=== PATIENT | female | born 1940 | race Two or more races ===

== ENCOUNTER 2022-05-25 02:09 | Inpatient (IN) | payer OTHER ==
[~2022-05-25] VITALS: Ht 162.6 cm; Wt 66.5 kg
[2022-05-25] VITALS (12 sets, daily range): BP systolic 110–131; BP diastolic 50–82
[2022-05-25 03:28] LABS: Basophils # (auto) 0 10 ^3/uL (0-0.2); Basophils % (auto) 0.3 % (0.0-2.0); Eosinophils # (auto) 0 10 ^3/uL (0-0.8); Eosinophils % (auto) 0.3 % (0.0-7.0); Hematocrit 35.4 % (36.0-46.0); Hemoglobin 11.9 g/dL (12.2-16.2); Lymphocytes # (auto) 1.7 10 ^3/uL (0.4-5.4); Lymphocytes % (auto) 13.2 % (10.0-50.0); Mean Corpuscular Hemoglobin 33.3 pg (28.0-32.0); Mean Corpuscular Hgb Conc. 33.7 g/dL (32.0-36.0); Mean Corpuscular Volume 98.6 fL (80.0-100.0); Monocytes # (auto) 0.6 10 ^3/uL (0-1.3); Monocytes % (auto) 4.2 % (0.0-12.0); Neutrophils # (auto) 10.7 10 ^3/uL (1.6-8.6); Red Blood Cells 3.59 10^6/uL (4.0-5.20); Red Cell Distribution Width 13.8 % (11.8-14.3); White Blood Cell 13.1 10^3/uL (4.4-10.8)
[2022-05-25 03:47] LABS: Albumin 4.1 g/dL (3.4-5.0); Calcium 9.2 mg/dL (8.5-10.1); Potassium 4.4 mmol/L (3.5-5.1)
[2022-05-25 03:52] LABS: BUN/Creatinine Ratio 16.3; Bilirubin, Total 0.5 mg/dL (0.2-1.0); Total Protein 7.5 g/dL (6.4-8.2)
[2022-05-25 04:21] LABS: INR 1.08 (0.9-1.15); Partial Thromboplastin Time 28.5 sec (24.6-33.4)
[2022-05-25] MEDS ORDERED: ENOXAPARIN SOD 100 MG/1 ML SYRINGE SC ONE (04:30)
[2022-05-25] MEDS ORDERED: ASPirin 81 mg TAB PO ONE (04:30)
[2022-05-25] MEDS ORDERED: HEPARIN SODIUM (PORCINE) 5000 UNITS/ML 1ML VIAL IV ONE (05:00)
[2022-05-25] MEDS ORDERED: ATORVASTATIN 20 MG TAB PO ONE (06:45)
[2022-05-25] MEDS ORDERED: HEPARIN DRIP/D5W 100UNITS/ML 250 ML IV SCH (06:45)
[2022-05-25] MEDS ORDERED: CLOPIDOGREL BISULFATE 75 MG TAB PO ONE (06:45)
[2022-05-25 08:24] LABS: Urine Bacteria FEW /hpf (None Seen); Urine Blood TRACE /uL (Negative); Urine Specific Gravity 1.013 (1.001-1.035); Urine WBC 42 /hpf (0 - 5); Urine WBC Clumps PRESENT /hpf (None Seen)
[2022-05-25] MEDS ORDERED: METO1TAB9 PO (09:20)
[2022-05-25] MEDS ORDERED: LOSA-69 PO (09:20)
[2022-05-25] MEDS ORDERED: CARB25TA77 PO (09:20)
[2022-05-25] MEDS ORDERED: LORA0.5T20 PO (09:20)
[2022-05-25] MEDS ORDERED: LATA0.0019 EACHEYE (09:20)
[2022-05-25] MEDS ORDERED: PIOG1TAB36 PO (09:20)
[2022-05-25] MEDS ORDERED: GLIP10TA9 PO (09:20)
[2022-05-25] MEDS ORDERED: SIMV-8 (09:20)
[2022-05-25] MEDS ORDERED: SITA100T7 PO (09:20)
[2022-05-25] MEDS ORDERED: LIDOCAINE 2%HCL (LOCAL ANESTH.) INJ 20ML MDV ONE (09:21)
[2022-05-25] MEDS ORDERED: IODIXANOL 320MG/ML 100ML BTL IV ONE (09:21)
[2022-05-25] MEDS ORDERED: HEPARIN SODIUM (PORCINE) 5000 UNITS/ML 1ML VIAL ONE (09:28)
[2022-05-25] MEDS ORDERED: ANGIOMAX 250 MG VIAL IV ONE (09:28)
[2022-05-25] MEDS ORDERED: VERAPAMIL 2.5MG/ML INJ 2ML VIAL IV ONE ×2 (09:29→09:58)
[2022-05-25] MEDS ORDERED: fentaNYL CITRATE 100 MCG/2 ML VL ONE (09:29)
[2022-05-25] MEDS ORDERED: MIDAZOLAM HCL 2MG/2ML 2ml VIAL (1mg/ml) ONE (09:29)
[2022-05-25] MEDS ORDERED: SODIUM CHL 0.9% 0 ML ONE (09:29)
[2022-05-25] MEDS ORDERED: ADENOSINE 6 MG/2 ML INJ IV ONE ×2 (10:05→10:07)
[2022-05-25] MEDS: METOPROLOL TARTRATE 50 MG TAB PO SCH ×2 (11:35→21:14)
[2022-05-25] MEDS ORDERED: ONDANSETRON HCL 4 MG/2 ML VIAL ONE (12:57)
[2022-05-25] MEDS: ONDANSETRON HCL 4 MG/2 ML VIAL IV PRN (13:00)
[2022-05-25] MEDS: SODIUM CHLOR 0.9% PF (SALINE LOCK) 10ML VIAL/SYR IV SCH ×2 (14:00→21:14)
[2022-05-26] VITALS (14 sets, daily range): BP systolic 101–137; BP diastolic 41–82
[2022-05-26] MEDS: SODIUM CHLOR 0.9% PF (SALINE LOCK) 10ML VIAL/SYR IV SCH ×3 (05:54→21:28)
[2022-05-26] MEDS ORDERED: ADENOSINE 6 MG/2 ML INJ IV ONE ×2 (09:15)
[2022-05-26] MEDS ORDERED: cefTRIAXone 1GM/50ML D5W 50 ML IV ONE (09:15)
[2022-05-26 09:32] LABS: Basophils # (auto) 0.1 10 ^3/uL (0-0.2); Basophils % (auto) 0.6 % (0.0-2.0); Eosinophils # (auto) 0 10 ^3/uL (0-0.8); Eosinophils % (auto) 0.4 % (0.0-7.0); Hemoglobin 12.2 g/dL (12.2-16.2); Lymphocytes # (auto) 2.4 10 ^3/uL (0.4-5.4); Lymphocytes % (auto) 23.2 % (10.0-50.0); Mean Corpuscular Hgb Conc. 33.8 g/dL (32.0-36.0); Mean Corpuscular Volume 97.7 fL (80.0-100.0); Monocytes # (auto) 0.8 10 ^3/uL (0-1.3); Monocytes % (auto) 7.3 % (0.0-12.0); Neutrophils # (auto) 7.2 10 ^3/uL (1.6-8.6); Neutrophils % (auto) 68.5 % (37.0-80.0); Red Blood Cells 3.68 10^6/uL (4.0-5.20); Red Cell Distribution Width 13.8 % (11.8-14.3); White Blood Cell 10.5 10^3/uL (4.4-10.8)
[2022-05-26 09:53] LABS: Potassium 4.4 mmol/L (3.5-5.1)
[2022-05-26 09:59] LABS: BUN/Creatinine Ratio 13.6; Calcium 8.9 mg/dL (8.5-10.1); Magnesium 1.9 mg/dL (1.6-2.6)
[2022-05-26] MEDS ORDERED: dilTIAZem HCL 180MG ER CAP PO SCH (10:00)
[2022-05-26] MEDS ORDERED: AMIODARONE HCL 150 MG in D5W 5% 100 ML IV ONE (10:15)
[2022-05-26] MEDS ORDERED: AMIODARONE HCL 200 MG TAB PO ONE (11:15)
[2022-05-26] MEDS ORDERED: ASPirin 81 mg TAB PO ONE (15:15)
[2022-05-26] MEDS ORDERED: ENOXAPARIN SOD 30 MG/0.3 ML SYRINGE SC ONE (15:15)
[2022-05-26] MEDS: SODIUM CHLORIDE 0.9% 1,000 ML IV SCH ×2 (15:18→21:28)
[2022-05-26] MEDS: ACETAMINOPHEN 325 MG TAB PO PRN (16:15)
[2022-05-26] MEDS: DOCUSATE SOD 100 MG CAP PO PRN (16:15)
[2022-05-26] MEDS ORDERED: ADENOSINE 6 MG/2 ML INJ IV PRN (21:00)
[2022-05-26] MEDS: AMIODARONE HCL 200 MG TAB PO SCH (21:28)
[2022-05-27] VITALS (36 sets, daily range): BP systolic 81–135; BP diastolic 40–79
[2022-05-27] MEDS ORDERED: dilTIAZem 25 MG/5 ML VIAL IV ONE (03:45)
[2022-05-27 05:04] LABS: Basophils # (auto) 0.1 10 ^3/uL (0-0.2); Basophils % (auto) 0.5 % (0.0-2.0); Eosinophils # (auto) 0.1 10 ^3/uL (0-0.8); Eosinophils % (auto) 0.5 % (0.0-7.0); Hematocrit 32.8 % (36.0-46.0); Hemoglobin 11.3 g/dL (12.2-16.2); Lymphocytes # (auto) 2.1 10 ^3/uL (0.4-5.4); Lymphocytes % (auto) 18.4 % (10.0-50.0); Mean Corpuscular Hemoglobin 33.6 pg (28.0-32.0); Mean Corpuscular Hgb Conc. 34.5 g/dL (32.0-36.0); Mean Corpuscular Volume 97.4 fL (80.0-100.0); Monocytes % (auto) 8.6 % (0.0-12.0); Red Blood Cells 3.36 10^6/uL (4.0-5.20); Red Cell Distribution Width 13.7 % (11.8-14.3); White Blood Cell 11.1 10^3/uL (4.4-10.8)
[2022-05-27 05:16] LABS: Albumin 3.2 g/dL (3.4-5.0); BUN/Creatinine Ratio 9.6; Calcium 8.1 mg/dL (8.5-10.1); Potassium 3.8 mmol/L (3.5-5.1)
[2022-05-27 05:19] LABS: Bilirubin, Total 0.8 mg/dL (0.2-1.0); Total Protein 6.2 g/dL (6.4-8.2)
[2022-05-27] MEDS: SODIUM CHLOR 0.9% PF (SALINE LOCK) 10ML VIAL/SYR IV SCH ×4 (06:15→21:36)
[2022-05-27] MEDS ORDERED: dilTIAZem 25 MG/5 ML VIAL IV PRN (07:45)
[2022-05-27] MEDS ORDERED: POTASSIUM EFFERVESENT TAB 25 MEQ PO ONE (08:30)
[2022-05-27] MEDS ORDERED: MAGNESIUM SULFATE 1GM/100ML 100 ML IV ONE (08:30)
[2022-05-27] MEDS ORDERED: dilTIAZem HCL 180MG ER CAP PO SCH (10:00)
[2022-05-27] MEDS ORDERED: dilTIAZem 120MG ER CAP PO SCH (10:15)
[2022-05-27] MEDS: ENOXAPARIN SOD 30 MG/0.3 ML SYRINGE SC SCH (10:19)
[2022-05-27] MEDS: ASPirin 81 mg TAB PO SCH (10:19)
[2022-05-27] MEDS: cefTRIAXone 1GM/50ML D5W 50 ML IV SCH (10:20)
[2022-05-27] MEDS: AMIODARONE HCL 200 MG TAB PO SCH (10:20)
[2022-05-27] MEDS ORDERED: AMIODARONE 450mg/250ml AE 250 ML IV ONE (12:11)
[2022-05-27] MEDS ORDERED: SOTALOL HCL 80 MG TAB PO ONE (12:15)
[2022-05-27] MEDS: AMIODARONE 450mg/250ml AE 250 ML IV SCH ×2 (12:29→20:45)
[2022-05-27] MEDS ORDERED: FLECAINIDE ACETATE 50 MG TAB PO SCH (14:00)
[2022-05-27] MEDS ORDERED: LIDOCAINE 1% (LOCAL ANESTH.) PF 5ml SDV ID ONE (15:30)
[2022-05-27] MEDS: ONDANSETRON HCL 4 MG/2 ML VIAL IV PRN (16:27)
[2022-05-27] MEDS: DOCUSATE SOD 100 MG CAP PO PRN (17:31)
[2022-05-27] MEDS: ACETAMINOPHEN 325 MG TAB PO PRN (17:41)
[2022-05-27] MEDS: SODIUM CHLORIDE 0.9% 1,000 ML IV SCH (19:22)
[2022-05-27] MEDS: dilTIAZem 120MG ER CAP PO SCH (21:36)
[2022-05-27] MEDS ORDERED: SOTALOL HCL 80 MG TAB PO SCH (22:00)
[2022-05-28] VITALS (43 sets, daily range): BP systolic 106–136; BP diastolic 40–81
[2022-05-28] MEDS: SODIUM CHLORIDE 0.9% 1,000 ML IV SCH ×3 (01:15→20:26)
[2022-05-28] MEDS: AMIODARONE 450mg/250ml AE 250 ML IV SCH ×4 (03:07→20:26)
[2022-05-28] MEDS: ACETAMINOPHEN 325 MG TAB PO PRN (03:26)
[2022-05-28 04:59] LABS: Basophils # (auto) 0 10 ^3/uL (0-0.2); Basophils % (auto) 0.4 % (0.0-2.0); Eosinophils # (auto) 0 10 ^3/uL (0-0.8); Eosinophils % (auto) 0.5 % (0.0-7.0); Hematocrit 32.5 % (36.0-46.0); Hemoglobin 10.8 g/dL (12.2-16.2); Lymphocytes # (auto) 1.6 10 ^3/uL (0.4-5.4); Lymphocytes % (auto) 15.3 % (10.0-50.0); Mean Corpuscular Hemoglobin 33.2 pg (28.0-32.0); Mean Corpuscular Hgb Conc. 33.2 g/dL (32.0-36.0); Monocytes # (auto) 0.9 10 ^3/uL (0-1.3); Monocytes % (auto) 9.2 % (0.0-12.0); Neutrophils # (auto) 7.6 10 ^3/uL (1.6-8.6); Neutrophils % (auto) 74.6 % (37.0-80.0); Red Blood Cells 3.25 10^6/uL (4.0-5.20); Red Cell Distribution Width 13.7 % (11.8-14.3); White Blood Cell 10.2 10^3/uL (4.4-10.8)
[2022-05-28 05:17] LABS: Albumin 2.8 g/dL (3.4-5.0); BUN/Creatinine Ratio 9.4; Potassium 4.4 mmol/L (3.5-5.1)
[2022-05-28 05:28] LABS: Bilirubin, Total 0.8 mg/dL (0.2-1.0)
[2022-05-28] MEDS: SODIUM CHLOR 0.9% PF (SALINE LOCK) 10ML VIAL/SYR IV SCH ×5 (05:51→21:44)
[2022-05-28] MEDS: ASPirin 81 mg TAB PO SCH (08:57)
[2022-05-28] MEDS: cefTRIAXone 1GM/50ML D5W 50 ML IV SCH (08:57)
[2022-05-28] MEDS: dilTIAZem 120MG ER CAP PO SCH ×2 (08:58→21:43)
[2022-05-28] MEDS ORDERED: DEXTROSE (50%) 50ML SYRG IV PRN (10:45)
[2022-05-28] MEDS: InsuLIN REG 1unit/0.01ml Soln (100units/ml) SC SCH ×3 (11:30→21:49)
[2022-05-28] MEDS: ACCU-CHEK COMFORT CURVE STRIP VI SCH ×3 (12:06→21:44)
[2022-05-28] MEDS: DOCUSATE SOD 100 MG CAP PO PRN (12:07)
[2022-05-28] MEDS: ENOXAPARIN SOD 30 MG/0.3 ML SYRINGE SC SCH (12:07)
[2022-05-28] MEDS: CARBIDOPA W LEVODOPA 25/100mg TABLET PO SCH ×3 (12:07→21:43)
[2022-05-28] MEDS ORDERED: THROAT LOZENGES(CEPASTAT) MT PRN (12:45)
[2022-05-28] MEDS: LORazepam 0.5 MG TAB PO PRN (21:44)
[2022-05-29] VITALS (53 sets, daily range): BP systolic 89–148; BP diastolic 29–67
[2022-05-29 05:03] LABS: Basophils # (auto) 0 10 ^3/uL (0-0.2); Basophils % (auto) 0.4 % (0.0-2.0); Eosinophils # (auto) 0.1 10 ^3/uL (0-0.8); Hematocrit 31.6 % (36.0-46.0); Hemoglobin 10.9 g/dL (12.2-16.2); Lymphocytes # (auto) 1.9 10 ^3/uL (0.4-5.4); Lymphocytes % (auto) 18.4 % (10.0-50.0); Mean Corpuscular Hemoglobin 34.1 pg (28.0-32.0); Mean Corpuscular Hgb Conc. 34.6 g/dL (32.0-36.0); Mean Corpuscular Volume 98.6 fL (80.0-100.0); Monocytes # (auto) 0.8 10 ^3/uL (0-1.3); Monocytes % (auto) 7.9 % (0.0-12.0); Neutrophils # (auto) 7.5 10 ^3/uL (1.6-8.6); Neutrophils % (auto) 72.3 % (37.0-80.0); Red Blood Cells 3.21 10^6/uL (4.0-5.20); White Blood Cell 10.4 10^3/uL (4.4-10.8)
[2022-05-29 05:17] LABS: Albumin 2.7 g/dL (3.4-5.0); BUN/Creatinine Ratio 7.1; Calcium 8.1 mg/dL (8.5-10.1); Magnesium 2.1 mg/dL (1.6-2.6); Potassium 3.9 mmol/L (3.5-5.1)
[2022-05-29 05:34] LABS: Bilirubin, Total 0.5 mg/dL (0.2-1.0); Total Protein 6.1 g/dL (6.4-8.2)
[2022-05-29] MEDS: CARBIDOPA W LEVODOPA 25/100mg TABLET PO SCH ×4 (06:30→22:27)
[2022-05-29] MEDS: SODIUM CHLOR 0.9% PF (SALINE LOCK) 10ML VIAL/SYR IV SCH ×5 (06:30→20:50)
[2022-05-29] MEDS: ACCU-CHEK COMFORT CURVE STRIP VI SCH ×4 (06:30→22:19)
[2022-05-29] MEDS: InsuLIN REG 1unit/0.01ml Soln (100units/ml) SC SCH ×4 (06:40→22:48)
[2022-05-29] MEDS: ACETAMINOPHEN 325 MG TAB PO PRN (08:07)
[2022-05-29] MEDS: cefTRIAXone 1GM/50ML D5W 50 ML IV SCH (09:00)
[2022-05-29] MEDS: AMIODARONE 450mg/250ml AE 250 ML IV SCH (09:30)
[2022-05-29] MEDS: ASPirin 81 mg TAB PO SCH (10:00)
[2022-05-29] MEDS: dilTIAZem 120MG ER CAP PO SCH ×2 (10:01→20:52)
[2022-05-29] MEDS: ENOXAPARIN SOD 30 MG/0.3 ML SYRINGE SC SCH (10:01)
[2022-05-29] MEDS ORDERED: SOTALOL HCL 80 MG TAB PO ONE (13:15)
[2022-05-29] MEDS: Glucerna Carbsteady SHAKE Chocolate 8oz PO SCH ×2 (14:00→22:00)
[2022-05-29] MEDS: DOCUSATE SOD 100 MG CAP PO PRN (15:26)
[2022-05-29] MEDS ORDERED: GLUCAGON HYDROCHLORIDE (RDNA) 1 MG VIAL IV ONE (16:15)
[2022-05-29] MEDS ORDERED: MORPHINE SULFATE INJ 2 MG/ml SYRG IV PRN (17:00)
[2022-05-29] MEDS ORDERED: LORazepam 2MG/ML-1ML VIAL IV PRN (17:00)
[2022-05-29 17:42] LABS: Alanine Aminotransferase < 6 U/L (13-56); Albumin 2.5 g/dL (3.4-5.0); Anion Gap 8 (5-15); Aspartate Aminotransferase 11 U/L (15-37); BUN/Creatinine Ratio 10.7; Blood Urea Nitrogen 9 mg/dL (7-18); Calcium 7.5 mg/dL (8.5-10.1); Carbon Dioxide 23 mmol/L (21-32); Chloride 101 mmol/L (98-107); GFR African American 83 mL/min; GFR Non-African American 69 mL/min; Glucose 292 mg/dL (74-106); Potassium 4.1 mmol/L (3.5-5.1); Sodium 132 mmol/L (136-145)
[2022-05-29] MEDS: SODIUM CHLORIDE 0.9% 1,000 ML IV SCH (17:42)
[2022-05-29 17:45] LABS: Alkaline Phosphatase 45 U/L (45-117); Bilirubin, Total 0.3 mg/dL (0.2-1.0); Total Protein 6.1 g/dL (6.4-8.2)
[2022-05-29] MEDS ORDERED: ISOPROTERENOL HCL INJECTION 1 MG in D5W 5% 250 ML IV SCH (19:15)
[2022-05-29] MEDS ORDERED: SOTALOL HCL 80 MG TAB PO SCH (22:00)
[2022-05-29] MEDS: LORazepam 0.5 MG TAB PO PRN (23:20)
[2022-05-30] VITALS (35 sets, daily range): BP systolic 89–161; BP diastolic 38–89
[2022-05-30] MEDS: Glucerna Carbsteady SHAKE Chocolate 8oz PO SCH ×3 (06:00→22:00)
[2022-05-30] MEDS: SODIUM CHLOR 0.9% PF (SALINE LOCK) 10ML VIAL/SYR IV SCH ×5 (06:25→22:00)
[2022-05-30] MEDS: CARBIDOPA W LEVODOPA 25/100mg TABLET PO SCH ×4 (06:27→23:03)
[2022-05-30] MEDS: ACCU-CHEK COMFORT CURVE STRIP VI SCH ×4 (06:27→23:00)
[2022-05-30 06:50] LABS: Basophils # (auto) 0 10 ^3/uL (0-0.2); Basophils % (auto) 0.3 % (0.0-2.0); Eosinophils # (auto) 0.1 10 ^3/uL (0-0.8); Eosinophils % (auto) 0.7 % (0.0-7.0); Hemoglobin 10.6 g/dL (12.2-16.2); Lymphocytes # (auto) 1.8 10 ^3/uL (0.4-5.4); Mean Corpuscular Hemoglobin 33.9 pg (28.0-32.0); Mean Corpuscular Hgb Conc. 34.2 g/dL (32.0-36.0); Monocytes # (auto) 0.7 10 ^3/uL (0-1.3); Monocytes % (auto) 6.9 % (0.0-12.0); Neutrophils # (auto) 7.8 10 ^3/uL (1.6-8.6); Neutrophils % (auto) 75.1 % (37.0-80.0); Red Blood Cells 3.13 10^6/uL (4.0-5.20); Red Cell Distribution Width 13.7 % (11.8-14.3); White Blood Cell 10.3 10^3/uL (4.4-10.8)
[2022-05-30] MEDS: InsuLIN REG 1unit/0.01ml Soln (100units/ml) SC SCH ×4 (06:50→23:00)
[2022-05-30 06:55] LABS: Albumin 2.6 g/dL (3.4-5.0); BUN/Creatinine Ratio 22.9; Calcium 7.9 mg/dL (8.5-10.1); Potassium 4.3 mmol/L (3.5-5.1)
[2022-05-30 06:58] LABS: Bilirubin, Total 0.4 mg/dL (0.2-1.0); Total Protein 5.7 g/dL (6.4-8.2)
[2022-05-30] MEDS: SODIUM CHLORIDE 0.9% 1,000 ML IV SCH ×2 (07:04→19:55)
[2022-05-30] MEDS ORDERED: DILT120C12 PO (08:13)
[2022-05-30] MEDS ORDERED: APIX2.5T PO (08:13)
[2022-05-30] MEDS ORDERED: SOTALOL HCL 80 MG TAB PO SCH (10:00)
[2022-05-30] MEDS: APIXABAN 5 MG TAB PO SCH ×2 (10:02→23:04)
[2022-05-30] MEDS: cefTRIAXone 1GM/50ML D5W 50 ML IV SCH (10:02)
[2022-05-30] MEDS: ASPirin 81 mg TAB PO SCH (10:03)
[2022-05-30] MEDS: dilTIAZem 120MG ER CAP PO SCH ×2 (10:13→23:02)
[2022-05-30] MEDS: LORazepam 0.5 MG TAB PO PRN ×2 (10:13→23:04)
[2022-05-31 02:00] VITALS: BP 135/73
[2022-05-31 06:00] VITALS: BP 126/58
[2022-05-31] MEDS: Glucerna Carbsteady SHAKE Chocolate 8oz PO SCH ×2 (06:00→14:00)
[2022-05-31] MEDS: ACCU-CHEK COMFORT CURVE STRIP VI SCH ×2 (06:06→11:30)
[2022-05-31] MEDS: InsuLIN REG 1unit/0.01ml Soln (100units/ml) SC SCH ×2 (06:06→11:36)
[2022-05-31] MEDS: SODIUM CHLOR 0.9% PF (SALINE LOCK) 10ML VIAL/SYR IV SCH ×3 (06:06→14:00)
[2022-05-31] MEDS: CARBIDOPA W LEVODOPA 25/100mg TABLET PO SCH ×2 (07:00→11:06)
[2022-05-31 08:00] VITALS: BP 149/61
[2022-05-31] MEDS: ACETAMINOPHEN 325 MG TAB PO PRN (09:11)
[2022-05-31 10:00] VITALS: BP 142/75
[2022-05-31] MEDS: cefTRIAXone 1GM/50ML D5W 50 ML IV SCH (11:05)
[2022-05-31] MEDS: APIXABAN 5 MG TAB PO SCH (11:06)
[2022-05-31] MEDS: dilTIAZem 120MG ER CAP PO SCH (11:09)
[2022-05-31 12:00] VITALS: BP 125/74
[2022-05-31 14:00] VITALS: BP 126/65
== END 2022-05-31 17:33 | DRG 871 ==
LOC: EDBD 02:09 → ER 02:09 → TELE 08:18 → TELE-CENTR 14:30 → DOU IN ICU 05-26 19:42 → ICU CENTRL 05-29 18:12 → DOU IN ICU 05-30 05:23 → ICU CENTRL 05-30 07:07 → DOU IN ICU 05-30 08:32
PROVIDERS: ADMIT Internal Medicine; ATTEND Internal Medicine
PROC: 4A023N7 Measurement of Cardiac Sampling and Pressure, Left Heart, Percutaneous Approach (ICD-10-PCS; principal; 2022-05-25)
PROC: B211YZZ Fluoroscopy of Multiple Coronary Arteries using Other Contrast (ICD-10-PCS; 2022-05-25)
PROC: B215YZZ Fluoroscopy of Left Heart using Other Contrast (ICD-10-PCS; 2022-05-25)
DX: A41.9 Sepsis, unspecified organism (principal); I21.4 Non-ST elevation (NSTEMI) myocardial infarction; I50.33 Acute on chronic diastolic (congestive) heart failure; I47.1 Supraventricular tachycardia; N39.0 Urinary tract infection, site not specified; I13.0 Hypertensive heart and chronic kidney disease with heart failure and stage 1 through stage 4 chronic kidney disease, or unspecified chronic kidney disease; I48.92 Unspecified atrial flutter; E87.1 Hypo-osmolality and hyponatremia; Z90.49 Acquired absence of other specified parts of digestive tract; N18.9 Chronic kidney disease, unspecified; G20 Parkinson's disease; E11.22 Type 2 diabetes mellitus with diabetic chronic kidney disease; I48.91 Unspecified atrial fibrillation; I49.5 Sick sinus syndrome; Z63.4 Disappearance and death of family member
CPT/HCPCS: 36415; 36569; 70450; 71045; 80048; 80053; 80061; 81001; 82962; 83036; 83605; 83735; 83880; 84443; 84484; 85025; 85610; 85730; 87040; 87081; 87086; 87426; 93005; 93306; 96365; 96375; 99152; G0378; J0153; J0696; J2250; J2405; J7060; Q9967

== ENCOUNTER 2024-02-16 12:11 | Emergency (ER) | payer OTHER ==
[~2024-02-16] VITALS: Ht 165.1 cm; Wt 59.0 kg
[~2024-02-16 12:11] MED LIST: APIX2.5T PO; CARB25TA77 PO; DILT120C12 PO; GLIP10TA9 PO; LATA0.008 EACHEYE; LORA-1121 PO; LOSA-534 PO; METO1TAB9 PO; PIOG1TAB36 PO; SIMV20TA20; SITA100T7 PO
[2024-02-16 12:12] VITALS: BP 114/51
[2024-02-16] MEDS: SODIUM CHLORIDE 0.9% 1,000 ML IV ONE (14:22)
[2024-02-16 14:49] LABS: Basophils # (auto) 0.1 10 ^3/uL (0-0.2); Eosinophils # (auto) 0 10 ^3/uL (0-0.8); Eosinophils % (auto) 0.1 % (0.0-7.0); Hematocrit 33.3 % (36.0-46.0); Hemoglobin 11.2 g/dL (12.2-16.2); Lymphocytes # (auto) 1.9 10 ^3/uL (0.4-5.4); Lymphocytes % (auto) 18.9 % (10.0-50.0); Mean Corpuscular Hemoglobin 32.6 pg (28.0-32.0); Mean Corpuscular Hgb Conc. 33.7 g/dL (32.0-36.0); Mean Corpuscular Volume 96.6 fL (80.0-100.0); Monocytes # (auto) 0.6 10 ^3/uL (0-1.3); Monocytes % (auto) 6.3 % (0.0-12.0); Neutrophils # (auto) 7.2 10 ^3/uL (1.6-8.6); Neutrophils % (auto) 73.7 % (37.0-80.0); Nucleated Red Blood Cells % 0.1 %; Red Blood Cells 3.45 10^6/uL (4.0-5.20); Red Cell Distribution Width 16.1 % (11.8-14.3); White Blood Cell 9.8 10^3/uL (4.4-10.8)
[2024-02-16 14:52] VITALS: PULSE 74; RESP 18; TEMP 99.1; O2SAT 95
[2024-02-16 15:02] LABS: Chloride 95 mmol/L (98-107); Potassium 4.9 mmol/L (3.5-5.1); Sodium 125 mmol/L (136-145)
[2024-02-16 15:03] LABS: Anion Gap 6 (5-15); Calcium 9.4 mg/dL (8.7-10.4); Carbon Dioxide 24 mmol/L (20-30)
[2024-02-16 15:08] LABS: BUN/Creatinine Ratio 17.1 (10.0-20.0); Blood Urea Nitrogen 13 mg/dL (9-23); Glucose 167 mg/dL (74-106)
[2024-02-16 17:37] LABS: Urine Bacteria FEW /hpf (None Seen); Urine Blood 1+ /uL (Negative); Urine Clarity Ex.Turbid (Clear); Urine Color Light-Brown (Yellow); Urine Mucus FEW (None Seen); Urine Protein, UAD 1+ (Negative); Urine Specific Gravity 1.009 (1.001-1.035); Urine Urobilinogen Normal (Negative); Urine WBC 79 /hpf (0 - 5); Urine WBC Clumps PRESENT /hpf (None Seen)
== END 2024-02-16 16:32 | disposition admitted as inpatient to this hospital (09) ==
LOC: ER 12:11
DX: E11.649 Type 2 diabetes mellitus with hypoglycemia without coma (principal); R41.82 Altered mental status, unspecified; R44.3 Hallucinations, unspecified; I10 Essential (primary) hypertension
CPT/HCPCS: 36415; 71045; 80048; 81001; 82962; 85025; 96360; 99284; J7030

== ENCOUNTER 2024-09-16 09:13 | Inpatient (IN) | payer OTHER ==
[~2024-09-16] VITALS: Ht 162.6 cm; Wt 59.4 kg
--- NOTE | 2024-09-16 09:44 | ED.PDOC ---
General HPI Comments 83 year old female brought in by EMS presents to the ED with a chief complaint of hematuria onset today. Per EMS, family member was changing patient's diaper when they noticed bright red blood in urine. Family states patient usually snores, but noticed snores worsen today. Upon EMS arrival patient's O2 sat was 92% on RA, HR 90, BS 170. PMHx DM, HTN, Parkinson's disease. Denies chest pain, shortness of breath, nausea, vomiting, diarrhea. No other symptoms or modifying factors present at this time. Chief Complaint: Urinary Time Seen by MD: 09:10 Reviewed notes: Medications, Allergies Allergies: Coded Allergies: NO KNOWN ALLERGIES (Unverified , 05/25/22) Home Meds Active Scripts Apixaban Base (ELIQUIS) 2.5 Mg Tab, 5 MG PO BID for 60 Days, #120 TAB Prov:DEX ISRAEL MD 05/30/22 Diltiazem Hcl (Cardizem La) 120 Mg Cp, 120 MG PO BID for 60 Days, #120 CAP Prov:DEX ISRAEL MD 05/30/22 Reported Medications Lorazepam (ATIVAN TABLET) 0.5 Mg Tb, 1 TAB PO DAILY PRN for ANXIETY 05/25/22 Latanoprost (LATANOPROST) 0.005 % Luma, 1 DROP EACHEYE DAILY for GLAUCOMA 05/25/22 Losartan Potassium (Losartan Potassium) 50 Mg Tab, 1 TAB PO QAM for HYPERTENSION 05/25/22 Carbidopa-Levodopa (Carbidopa/Levodopa Er) 25 /100 Tab, 1 TAB PO DAILY for PARKINSON'S DISEASE 05/25/22 Metoprolol Succinate (Metoprolol Succinate Er) 100 Mg Tab, 1 TAB PO QAM for HYPERTENSION 05/25/22 Simvastatin (Simvastatin) 20 Mg Tab, 1 TAB QPM for HIGH CHOLESTEROL 05/25/22 Glipizide (Glipizide) 10 Mg Tab, 1 TAB PO BID for DIABETES 05/25/22 Pioglitazone Hydrochloride (PIOGLITAZONE HCL) 15 Mg Tab, 1 TAB PO QAM for DIABETES 05/25/22 Sitagliptin Phosphate (Januvia) 100 Mg Tab, 1 TAB PO QAM for DIABETES 05/25/22 Information Source: Patient, Emergency Med Personnel Mode of Arrival: EMS Severity: Moderate Timing: Hours Duration: Since onset Prehospital treatment: None Onset: Spontaneous Symptoms: Hematuria History of: None Location: None Modifying factors: None associated signs and symptoms: Hematuria Past Medical History PAST MEDICAL HISTORY: DM, HTN Past Medical History (Other): Parkinson's disease Surgical History: Denies all surgeries UNDERCOVER COP History: Denies all UNDERCOVER COP Hx Family History Family History: Reviewed,noncontributory to illness Social History Smoker: Non-Smoker Alcohol: Denies ETOH Use Drugs: Denies Drug Use Lives In: Home Constitutional: reports: weakness; denies: chills, diaphoresis, fatigue, fever, malaise, sweats, others EENTM: reports: others (increased snoring ); denies: blurred vision, double vision, ear bleeding, ear discharge, ear drainage, ear pain, ear ringing, eye pain, eye redness, hearing loss, mouth pain, mouth swelling, nasal discharge, nose bleeding, nose congestion, nose pain, photophobia, tearing, throat pain, throat swelling, voice changes Respiratory: denies: cough, hemoptysis, orthopnea, SOB at rest, shortness of breath, SOB with excertion, stridor, wheezing, others Cardiovascular: denies: chest pain, dizzy spells, diaphoresis, Dyspnea on exertion, edema, irregular heart beat, left arm pain, lightheadedness, palpitations, PND, syncope, others Gastrointestinal: denies: abdomen distended, abdominal pain, blood streaked bowels, constipated, diarrhea, dysphagia, difficulty swallowing, hematemesis, melena, nausea, poor appetite, poor fluid intake, rectal bleeding, rectal pain, vomiting, others Genitourinary: reports: hematuria; denies: abnormal vagina bleeding, burning, dyspareunia, dysuria, flank pain, frequency, incontinence, pain, , vagina discharge, urgency, others Neurological: reports: weakness; denies: dizziness, fainting, headache, left sided numbness, left sided weakness, numbness, paresthesia, pre-existing deficit, right sided numbness, right sided weakness, seizure, speech problems, tingling, tremors, others Musculoskeletal: denies: back pain, gout, joint pain, joint swelling, muscle pain, muscle stiffness, neck pain, others Integumetry: denies: bruises, change in color, change in hair/nails, dryness, laceration, lesions, lumps, rash, wounds, others Allergic/Immunocompromised: denies: Difficulty Healing, Frequent Infections, Hives, Itching, others Hematologic/Lymphatic: denies: anemia, blood clots, easy bleeding, easy bruising, swollen glands, others Endocrine: denies: excessive hunger, excessive sweating, excessive thirst, excessive urination, flushing, intolerance to cold, intolerance to heat, unexplained weight gain, unexplained weight loss, others Psychiatric: denies: anxiety, bipolar disorder, depression, hopeless, panic disorder, schizophrenia, sleepless, suicidal, others All Other Systems: Reviewed and Negative Physical Exam General Appearance: Moderate Distress HEENT: Normal ENT Inspection, Pharynx Normal, TMs Normal Neck: Full Range of Motion, Non-Tender, Normal, Normal Inspection Respiratory: Other (Coarse breath sounds) Cardiovascular: No Edema, No JVD, No Murmur, No Gallop, Normal Peripheral Pulses, Regular Rate/Rhythm Breast Exam: Deferred Gastrointestinal: No Organomegaly, Non Tender, No Pulsatile Mass, Normal Bowel Sounds, Soft Genitalia: Deferred Pelvic: Deferred Rectal: Deferred Extremities: No calf tenderness Musculoskeletal : Apperance: Normal Neurologic: Alert, No Motor Deficits, No Sensory Deficits Cerebellar Function: NOT DONE Reflexes: NOT DONE Skin: Dry, Normal Color, Warm Peripheral Pulses: 3+ Radial (R), 3+ Radial (L) Lymphatic: No Adenopathy Was a procedure done? Was a procedure done?: No Differential Diagnosis Kidney stone (Female): Musculoskeletal pain, Urinary obstruction, Urolithiasis X-Ray, Labs, Meds, VS Vital Signs Date Time Temp Pulse Resp B/P (MAP) Pulse Ox O2 Delivery O2 Flow Rate FiO2 09/16/24 12:00 74 14 98/50 (66) 95 09/16/24 10:25 98.2 78 14 113/40 (64) 97 98.2 09/16/24 10:25 78 14 97 Room Air* 0 21 09/16/24 09:20 98.4 74 14 151/73 (99) 94 Lab Test 09/16/24 09:38 Range/Units White Blood Count 11.7 H 4.4-10.8 10^3/uL Red Blood Count 3.06 L 4.0-5.20 10^6/uL Hemoglobin 10.3 L 12.2-16.2 g/dL Hematocrit 30.2 L 36.0-46.0 % Mean Corpuscular Volume 98.7 80.0-100.0 fL Mean Corpuscular Hemoglobin 33.6 H 28.0-32.0 pg Mean Corpuscular Hemoglobin Concent 34.1 32.0-36.0 g/dL Red Cell Distribution Width 13.0 11.8-14.3 % Platelet Count 274 140-450 10^3/uL Mean Platelet Volume 7.1 6.9-10.8 fL Neutrophils (%) (Auto) 63.3 37.0-80.0 % Lymphocytes (%) (Auto) 28.8 10.0-50.0 % Monocytes (%) (Auto) 7.1 0.0-12.0 % Eosinophils (%) (Auto) 0.4 0.0-7.0 % Basophils (%) (Auto) 0.4 0.0-2.0 % Neutrophils # (Auto) 7.4 1.6-8.6 10 ^3/uL Lymphocytes # (Auto) 3.4 0.4-5.4 10 ^3/uL Monocytes # (Auto) 0.8 0-1.3 10 ^3/uL Eosinophils # (Auto) 0.1 0-0.8 10 ^3/uL Basophils # (Auto) 0 0-0.2 10 ^3/uL Nucleated Red Blood Cells 0.1 % Sodium Level 110 *L 136-145 mmol/L Potassium Level 4.9 3.5-5.1 mmol/L Chloride Level 81 L 98-107 mmol/L Carbon Dioxide Level 22 20-31 mmol/L Anion Gap 7 5-15 Blood Urea Nitrogen 15 9-23 mg/dL Creatinine 0.79 0.550-1.02 mg/dL Glomerular Filtration Rate Calc 74 >90 mL/min BUN/Creatinine Ratio 19.0 10.0-20.0 Serum Glucose 162 H 74-106 mg/dL Calcium Level 9.3 8.7-10.4 mg/dL [address] [address] Ph: [phone] DIAGNOSTIC IMAGING Diagnostic Imaging Report : [id number] Signed PATIENT: JOSELINE AKBAR ACCT: [id number] UNIT: [id number] : 1940 LOC: ER ROOM / BED: / AGE / SEX: 83 / F ADM STATUS: REG ER SERVICE 8 ORDERING PHYSICIAN: PAVAN DOUGHERTY MD PROCEDURE(s): CXRP - CHEST PORTABLE REASON: sob ORDER NUMBER(s): [id number], ACCESSION NUMBER(s): [id number] XY CHEST PORTABLE, HISTORY: sob COMPARISON: XY CHEST PORTABLE on DOS: 02/16/24, EKG on DOS: 05/29/22, EKG on DOS: 05/29/22 XY CHEST PORTABLE on DOS: 02/16/24, EKG on DOS: 05/29/22, EKG on DOS: 05/29/22 TECHNICAL DATA: 1 view of the chest was obtained. FINDINGS: Lines and tubes: None Cardiomediastinal silhouette: prominent Pulmonary vasculature: prominent Lung expansion: low Lung airspace: normal Lung interstitium: normal Pleura: normal Pneumothorax: no Bones: Unremarkable Other: no IMPRESSION: Cardiomegaly with pulmonary congestion. ATED BY: GALO GARCIA MD DICTATED DATE/TIME: 09/16/24940 SIGNED BY: GALO GARCIA MD SIGNED DATE/TIME: 09/16/24940 CC: Patient responds to name. Generalized weakness. Chest x-ray reviewed does show congestion. Continues to be weak. Saturation above 95% on room air. Respiratory rate within normal limits. No head trauma. She is not confused. CT of the head was not done because of the physical examination. Sodium level is low. Establish intravenous access. Was given fluids. She does not answering many questions. Metabolic encephalopathy from hyponatremia. Waiting for family. EKG reviewed does not show any acute changes. Continue monitoring. Time of 1ST Reevaluation: 09:40 Reevaluation 1ST: Unchanged Patient Education/Counseling: Diagnosis, Treatment, Prognosis Family Education/Counseling: No Family Present Additional Information The following tests were ordered, and results were reviewed by me: CBC, XY CHEST, UA, BMP Additional Information was gathered from interviewing the following independent historians: EMS I reviewed and agreed with the following test results read by other providers: XY CHEST I discussed treatment and results with medical personnel and patient Departure 1 Departure Time of Disposition: 13:15 Impression: Primary Impression: Metabolic encephalopathy Additional Impressions: CKD (chronic kidney disease) Qualified Codes: N18.9 - Chronic kidney disease, unspecified Hyponatremia Disposition: ADMITTED INPATIENT Admit to: Med Surg Condition: Guarded Critical Care Note Critical Care Time?: Yes (90 min-critical care time only) Stability Stability form required: No Heart Score Heart Score: Heart Score Response (Comments) Value History Slightly Suspicious 0 EKG Normal 0 Age >65 2 Risk Factors >3 or Hx ASHD 2 Troponin Normal limit 0 Total 4 I personally scribed for PAVAN DOUGHERTY MD ([email or web address]) on 09/16/24 at 09:44. Electronically submitted by Darcy Krishnan ([email or web address]). I personally scribed for PAVAN DOUGHERTY MD ([email or web address]) on 09/16/24 at 10:15. Electronically submitted by Darcy Krishnan ([email or web address]). I personally scribed for PAVAN DOUGHERTY MD ([email or web address]) on 09/16/24 at 10:15. Electronically submitted by Darcy Krishnan ([email or web address]). PAVAN DOUGHERTY MD Sep 16, 2024 09:44
[2024-09-16 10:14] LABS: Basophils # (auto) 0 10 ^3/uL (0-0.2); Basophils % (auto) 0.4 % (0.0-2.0); Eosinophils # (auto) 0.1 10 ^3/uL (0-0.8); Eosinophils % (auto) 0.4 % (0.0-7.0); Hematocrit 30.2 % (36.0-46.0); Hemoglobin 10.3 g/dL (12.2-16.2); Lymphocytes # (auto) 3.4 10 ^3/uL (0.4-5.4); Lymphocytes % (auto) 28.8 % (10.0-50.0); Mean Corpuscular Hemoglobin 33.6 pg (28.0-32.0); Mean Corpuscular Hgb Conc. 34.1 g/dL (32.0-36.0); Mean Corpuscular Volume 98.7 fL (80.0-100.0); Monocytes # (auto) 0.8 10 ^3/uL (0-1.3); Monocytes % (auto) 7.1 % (0.0-12.0); Neutrophils # (auto) 7.4 10 ^3/uL (1.6-8.6); Neutrophils % (auto) 63.3 % (37.0-80.0); Nucleated Red Blood Cells % 0.1 %; Platelet Count (auto) 274 10^3/uL (140-450); Red Blood Cells 3.06 10^6/uL (4.0-5.20); White Blood Cell 11.7 10^3/uL (4.4-10.8)
[2024-09-16 10:23] LABS: Potassium 4.9 mmol/L (3.5-5.1)
[2024-09-16 10:24] LABS: Anion Gap 7 (5-15); Carbon Dioxide 22 mmol/L (20-31)
[2024-09-16 10:25] VITALS: PULSE 78; RESP 14; O2SAT 97
[2024-09-16 10:25] LABS: Calcium 9.3 mg/dL (8.7-10.4)
[2024-09-16 10:30] LABS: Blood Urea Nitrogen 15 mg/dL (9-23)
[2024-09-16 10:39] LABS: Chloride 81 mmol/L (98-107); Glucose 162 mg/dL (74-106); Sodium 110 mmol/L (136-145)
[2024-09-16] MEDS: SODIUM CHLORIDE 0.9% 1,000 ML IV ONE ×2 (13:42→14:55)
[2024-09-16] MEDS ORDERED: DEXTROSE (50%) 50ML SYRG IV PRN (14:00)
[2024-09-16] MEDS ORDERED: HYDROcodone-ACET 5/325MG TAB PO PRN (14:00)
[2024-09-16] MEDS ORDERED: ONDANSETRON HCL 4 MG/2 ML VIAL IV PRN (14:00)
[2024-09-16] MEDS ORDERED: DOCUSATE SOD 100 MG CAP PO PRN (14:00)
[2024-09-16] MEDS: SODIUM CHL 3% 500 ML IV ONE (14:51)
--- NOTE | 2024-09-16 15:57 | DVHHP2 ---
History of Present Illness Reason for Visit: Hyponatremia History of Present Illness The patient is a 83 years old female with past medical history of Parkinson's disease, mention, DM, and hyperlipidemia who presented to [facility] ED with complaint of hematuria. As reported by family member at bedside, patient's diaper was noticed to have bright red blood in urine at point of care. Patient was seen and evaluated in the ED, laboratory data shows WBC 11.7, hemoglobin 10.3, hematocrit 30.2, platelets 274, sodium 110, potassium 4.9, BUN 15, creatinine 0.79, GFR 74, glucose 162, blood pressure 98/50, heart rate 74, temperature 98.2 F, O2 saturation 97% on room air. Urinalysis positive for urin molly tract infection; chest x-ray revealing cardiomegaly with pulmonary congestion. Patient was started on 3% sodium chloride, IV antibiotic regimen Rocephin, please see medication orders section in the computer. On my assessment, family member at bedside, patient denied chest pain, no headache, no dizziness, no diaphoresis, no nausea, no vomiting, no fever, no chills. Patient was admitted for further evaluation and medical management. Past Medical History HLD, DM, HTN, Parkinson's disease Past Surgical History Denies all surgeries Family History Reviewed, noncontributory to the management of this case. Past Social History The patient lives at home, denies smoking, alcohol or illicit drugs abuse. Review of Systems Constitutional: Yes: Weakness; No: Fever, Chills, Sweats, Malaise, Other Eyes: No: Pain, Vision change, Conjunctivae inflammation, Eyelid inflammation, Other, Redness ENT: Other (increased snoring ); No: Ear pain, Ear discharge, Nose pain, Nose discharge, Nose congestion, Mouth pain, Mouth swelling, Throat pain, Throat swelling Respiratory: No: Cough, Dry, Shortness of breath, SOB with excertion, Wheezing, Hemoptysis, Pleuritic Pain, Sputum, Wheezing, Other Cardiovascular: No: Chest Pain, Palpitations, Orthopnea, Paroxysmal Noc. Dyspnea, Edema, Lt Headedness, Other Gastrointestinal: No: Nausea, Vomiting, Abdominal Pain, Diarrhea, Constipation, Melena, Hematochezia, Other Genitourinary: No Dysuria, No Frequency, No Incontinence; Hematuria; No Retention, No Other Musculoskeletal: No: other, neck pain, shoulder pain, arm pain, back pain, hand pain, leg pain, foot pain Skin: No: Rash, Lesions, Jaundice, Bruising, Other Neurological: Weakness; No: Numbness, Incoordination, Change in speech, Confusion, Seizures, Other Allergies: Coded Allergies: NO KNOWN ALLERGIES (Unverified , 05/25/22) Medications Current Medications Medications Dose Ordered Sig/Annmarie Route Start Time Stop Time Status Last Admin Dose Admin Diagnostic Test (Pha) 1 strip ACHS 09/16/24 17:00 Insulin Human Regular ACHS SC 09/16/24 17:00 Dextrose 50 ml UD PRN IV 09/16/24 14:00 Acetaminophen/ Hydrocodone Bitart 1 tab Q4HP PRN PO 09/16/24 14:00 Ondansetron HCl 4 mg Q4HP PRN IV 09/16/24 14:00 Docusate Sodium 100 mg BIDPRN PRN PO 09/16/24 14:00 Acetaminophen 650 mg Q6HP PRN PO 09/16/24 14:00 Atorvastatin Calcium 10 mg HS PO 09/16/24 22:00 Carbidopa/Levodopa 1 tab TID PO 09/16/24 22:00 Exam Vital Signs Vital Signs Date Time Temp Pulse Resp B/P (MAP) Pulse Ox O2 Delivery O2 Flow Rate FiO2 09/16/24 14:00 77 12 132/50 (77) 95 09/16/24 10:25 98.2 98.2 09/16/24 10:25 Room Air* 0 21 General Appearance: Alert, Oriented X3, Cooperative, No acute distress HEENT: Atraumatic, PERRLA, EOMI, Mucous membr. moist/pink Respiratory: Clear to auscultation, Normal air movement Cardiovascular: Regular rate, Normal S1, Normal S2, No murmurs Abdominal: Normal bowel sounds, Soft, No tenderness, No hepatospenomegaly, No masses Extremities: No clubbing, No cyanosis, No edema, Normal pulses, No tenderness/swelling Skin: No rashes, No breakdown, No significant lesion Neuro: Normal speech, Normal tone, Sensation intact, Cranial nerves 3-12 NL, Reflexes 2+, Other (Generalized weakness) Psych/Mental Status: Mental status NL, Mood NL Labs/Xrays Labs Test 09/16/24 09:38 Range/Units White Blood Count 11.7 H 4.4-10.8 10^3/uL Red Blood Count 3.06 L 4.0-5.20 10^6/uL Hemoglobin 10.3 L 12.2-16.2 g/dL Hematocrit 30.2 L 36.0-46.0 % Mean Corpuscular Volume 98.7 80.0-100.0 fL Mean Corpuscular Hemoglobin 33.6 H 28.0-32.0 pg Mean Corpuscular Hemoglobin Concent 34.1 32.0-36.0 g/dL Red Cell Distribution Width 13.0 11.8-14.3 % Platelet Count 274 140-450 10^3/uL Mean Platelet Volume 7.1 6.9-10.8 fL Neutrophils (%) (Auto) 63.3 37.0-80.0 % Lymphocytes (%) (Auto) 28.8 10.0-50.0 % Monocytes (%) (Auto) 7.1 0.0-12.0 % Eosinophils (%) (Auto) 0.4 0.0-7.0 % Basophils (%) (Auto) 0.4 0.0-2.0 % Neutrophils # (Auto) 7.4 1.6-8.6 10 ^3/uL Lymphocytes # (Auto) 3.4 0.4-5.4 10 ^3/uL Monocytes # (Auto) 0.8 0-1.3 10 ^3/uL Eosinophils # (Auto) 0.1 0-0.8 10 ^3/uL Basophils # (Auto) 0 0-0.2 10 ^3/uL Nucleated Red Blood Cells 0.1 % Sodium Level 110 *L 136-145 mmol/L Potassium Level 4.9 3.5-5.1 mmol/L Chloride Level 81 L 98-107 mmol/L Carbon Dioxide Level 22 20-31 mmol/L Anion Gap 7 5-15 Blood Urea Nitrogen 15 9-23 mg/dL Creatinine 0.79 0.550-1.02 mg/dL Glomerular Filtration Rate Calc 74 >90 mL/min BUN/Creatinine Ratio 19.0 10.0-20.0 Serum Glucose 162 H 74-106 mg/dL Calcium Level 9.3 8.7-10.4 mg/dL PATIENT: JOSELINE AKBAR ACCT: [id number] UNIT: [id number] : 1940 LOC: ER ROOM / BED: / AGE / SEX: 83 / F ADM STATUS: REG ER SERVICE 0919 ORDERING PHYSICIAN: PAVAN DOUGHERTY MD PROCEDURE(s): CXRP - CHEST PORTABLE REASON: sob ORDER NUMBER(s): [id number], ACCESSION NUMBER(s): [id number] XY CHEST PORTABLE, HISTORY: sob COMPARISON: XY CHEST PORTABLE on DOS: 02/16/24, EKG on DOS: 05/29/22, EKG on DOS: 05/29/22 XY CHEST PORTABLE on DOS: 02/16/24, EKG on DOS: 05/29/22, EKG on DOS: 05/29/22 TECHNICAL DATA: 1 view of the chest was obtained. FINDINGS: Lines and tubes: None Cardiomediastinal silhouette: prominent Pulmonary vasculature: prominent Lung expansion: low Lung airspace: normal Lung interstitium: normal Pleura: normal Pneumothorax: no Bones: Unremarkable Other: no IMPRESSION: Cardiomegaly with pulmonary congestion. Assessment/Plan Assessment/Plan Hyponatremia Gross hematuria Metabolic encephalopathy Generalized weakness Urinary tract infection Plan 1. Admit to telemetry unit 2. Breathing treatment 3. Pain control management 4. IV antibiotic management 5. Management of fluids and electrolytes 6. Consultation for Urology 7. Diagnostic test abdomen/pelvis CT 8. DVT prophylaxis on SCDs 9. Repeat labs CBC, CMP in a.m. 10. Home medication reviewed and reconciled 11. Continue with current medical management 12. Treatment plan discussed with patient and RN. Patient/family member verbalized understanding. Plan discussed with: Patient, Other (RN) My Orders Orders - REID HUGHES DNP Procedure Category Date Status Time Consistent DIET 09/16/24 Transmitted Carb(Ccho)Diabetes Dinner Sodium Chl 3% PHA 09/16/24 In Process 14:00 * Urology Consult CONS 09/16/24 Transmitted 13:59 Glucose Blood PHA 09/16/24 In Process (Accu-Chek Comfort 17:00 Insulin R (Human) PHA 09/16/24 In Process (Insulin R) 17:00 Dextrose 50% Syringe PHA 09/16/24 In Process 14:00 Allergies IMANI 09/16/24 In Process 13:59 Code Status CODE 09/16/24 Transmitted 13:59 Oxygen Per Hour RT 09/16/24 Transmitted 13:59 Hydrocodone-Acet PHA 09/16/24 In Process 5/325mg Tab ([place] 14:00 Ondansetron Hcl PHA 09/16/24 In Process (Zofran) 14:00 Docusate Sodium PHA 09/16/24 In Process Capsule (Colace 14:00 Fall Risk Precautions IMANI 09/16/[address] 13:59 Complete Blood Count LAB 09/17/24 Verified 04:00 Comprehensive LAB 09/17/24 Verified Metabolic Panel 04:00 Cardiac DIET 09/16/24 Transmitted Diet-2gna,Lofat,Lochol Dinner Condition: Serious IMANI 09/16/24 In Process 13:59 Acetaminophen Tablet PHA 09/16/24 In Process (Tylenol Tablet) 14:00 Sequential IMANI 09/16/24 In Process Compression Device Atorvastatin (Lipitor) PHA 09/16/24 In Process 22:00 Carbidopa W Levodopa PHA 09/16/24 In Process 25/100mg (Sinemet 2 22:00 Admit ADMIT 09/16/24 Verified 15:55 Nitroglycerin PHA 09/16/24 Verified Sublingual (Ntrostat 16:00 Morphine Sulfate PHA 09/16/24 Verified Injection 16:00 Problem List: (1) Hyponatremia (2) Gross hematuria (3) Metabolic encephalopathy (4) Urinary tract infection (5) Generalized weakness Date of Service: Sep 16, 2024 Billing Provider: REID HUGHES DNP Common Visit Codes: [id number] INP/OBS CARE (HIGH) REID HUGHES DNP Sep 16, 2024 15:57
[2024-09-16] MEDS ORDERED: NITROGLYCERIN 0.4 MG SL TAB SL PRN (16:00)
[2024-09-16] MEDS ORDERED: MORPHINE SULFATE INJ 2 MG/ml SYRG IV PRN (16:00)
[2024-09-16 16:43] LABS: Urine Bacteria MOD /hpf (None Seen); Urine Blood 3+ /uL (Negative); Urine Clarity Ex.Turbid (Clear); Urine Color Red (Yellow); Urine Protein, UAD 3+ (Negative); Urine Specific Gravity 1.011 (1.001-1.035); Urine Squamous Epithelial Cell None Seen /hpf (<5); Urine Urobilinogen Normal (Negative); Urine WBC 1650 /HPF (0-5); Urine WBC Clumps PRESENT /hpf (None Seen); Urine pH 7.5 (5.0-9.0)
[2024-09-16] MEDS: InsuLIN REG 1unit/0.01ml Soln (100units/ml) SC SCH (17:29)
[2024-09-16] MEDS: ACCU-CHEK COMFORT CURVE STRIP VI SCH (17:29)
--- NOTE | 2024-09-16 18:11 | DVHINCON2 ---
Date of service: Sep 16, 2024 Referring Physician hospitalist Reason for Consultation gross hematuria History of Present Illness History Source: RN Notes Exam Limitations: Clinical condition HPI 83 yo female with gross hematuria. pt is not arousable, she is snoring heavily. Her ann is matt blood. Pts family reports she has parkinsons disease and dementia but it is worse in the past few days. Her sodium is 110 she has been started on hypertonic infusion. Home Meds Active Scripts Apixaban Base (ELIQUIS) 2.5 Mg Tab, 5 MG PO BID for 60 Days, #120 TAB Prov:DEX ISRAEL MD 05/30/22 Diltiazem Hcl (Cardizem La) 120 Mg Cp, 120 MG PO BID for 60 Days, #120 CAP Prov:DEX ISRAEL MD 05/30/22 Reported Medications Lorazepam (ATIVAN TABLET) 0.5 Mg Tb, 1 TAB PO DAILY PRN for ANXIETY 05/25/22 Latanoprost (LATANOPROST) 0.005 % Luma, 1 DROP EACHEYE DAILY for GLAUCOMA 05/25/22 Losartan Potassium (Losartan Potassium) 50 Mg Tab, 1 TAB PO QAM for HYPERTENSION 05/25/22 Carbidopa-Levodopa (Carbidopa/Levodopa Er) 25 /100 Tab, 1 TAB PO DAILY for PARKINSON'S DISEASE 05/25/22 Metoprolol Succinate (Metoprolol Succinate Er) 100 Mg Tab, 1 TAB PO QAM for HYPERTENSION 05/25/22 Simvastatin (Simvastatin) 20 Mg Tab, 1 TAB QPM for HIGH CHOLESTEROL 05/25/22 Glipizide (Glipizide) 10 Mg Tab, 1 TAB PO BID for DIABETES 05/25/22 Pioglitazone Hydrochloride (PIOGLITAZONE HCL) 15 Mg Tab, 1 TAB PO QAM for DIABETES 05/25/22 Sitagliptin Phosphate (Januvia) 100 Mg Tab, 1 TAB PO QAM for DIABETES 05/25/22 Review of Systems Comments unable to obtain Genitourinary: Hematuria H&P Exam Vital Signs Vital Signs Date Time Temp Pulse Resp B/P (MAP) Pulse Ox O2 Delivery O2 Flow Rate FiO2 09/16/24 16:00 72 15 106/44 (64) 94 09/16/24 10:25 98.2 98.2 09/16/24 10:25 Room Air* 0 21 General Appeara: Well developed, Well nourished Skin Exam: Pallor Labs/Xrays [facility] [id number] [facility] [address] Ph: [phone] DIAGNOSTIC IMAGING Diagnostic Imaging Report : [id number] Signed PATIENT: JOSELINE AKBAR ACCT: [id number] UNIT: [id number] : 1940 LOC: TELE ROOM / BED: [address] [place] [address] AGE / SEX: 83 / F ADM STATUS: ADM IN SERVICE 5085 ORDERING PHYSICIAN: MARIE BRADFORD NP PROCEDURE(s): ABPEL - CT AB PELVIS W WO CON-IV ONLY REASON: gross hematuria ORDER NUMBER(s): [id number], ACCESSION NUMBER(s): [id number] Exam: CT CT AB PELVIS with contrast History: gross hematuria Comparison Study: None available at time of dictation. Technique: Multidetector spiral CT of the abdomen and pelvis was performed from lung bases to pubic symphysis. Initial imaging was done without IV contrast, followed by post contrast images of the abdomen and pelvis. Intravenous contrast was administered during this examination. portal venous/arterial/multiphase imaging was obtained. Axial, coronal and sagittal multiplanar reformats were performed by the technologist on a separate workstation. Radiation Dose : CT Dose: CTDI volume is 7.44 mGy. Dose-length product is 784.81 mGy*cm Findings: Lung bases demonstrate bilateral ground-glass disease, reticular changes. Adrenal glands, spleen and pancreas unremarkable. No enhancing hepatic lesion. Cholecystectomy. The kidneys demonstrate no hydronephrosis. Stomach is partially distended. Small bowel loops are normal in caliber. Colonic diverticular disease. Moderate volume stool in the colon. No secondary signs for appendicitis. Abdominal aortic atherosclerotic disease. There is diffuse irregular thickening of the bladder wall with surrounding stranding. Bladder mucosal hyperemia. Ann catheter. Small amount of air in the bladder. No inguinal lymphadenopathy. Moderate thoracolumbar degenerative disc disease. Chronic T12 compression deformity with approximately 30% loss height. IMPRESSION: 1. Severe bladder wall thickening and surrounding stranding with mucosal hyperemia. Findings are consistent with severe cystitis. 2. Bilateral pulmonary ground-glass disease and reticular changes which could be secondary to chronic lung disease/ interstitial disease, edema, infect ious/inflammatory processes. 3. Cholecystectomy. 4. No evidence of renal mass. 5. Other findings as described. HS:Y ATED BY: KODY TENORIO MD DICTATED DATE/TIME: 09/16/242107 SIGNED BY: KODY TENORIO MD SIGNED DATE/TIME: 09/16/242107 CC: Labs Test 09/16/24 17:21 09/16/24 16:15 09/16/24 09:38 Range/Units POC Glucose 171 H 70-106 mg/dl Urine Color Red H Yellow Urine Clarity Ex.turbid Clear Urine pH 7.5 5.0-9.0 Urine Specific [place] 1.011 1.001-1.035 Urine Protein 3+ H Negative Urine Ketones Negative Negative Urine Blood 3+ H Negative /uL Urine Nitrite Negative Negative Urine Bilirubin Negative Negative Urine Urobilinogen Normal Negative mg/dL Urine Leukocyte Esterase 3+ Negative /uL Urine RBC 4468 0 - 4 /hpf Urine WBC Clumps Present None Seen /hpf Urine Microscopic WBC 1650 H 0-5 /HPF Urine Squamous Epithelial Cells None seen <5 /hpf Urine Bacteria Mod H None Seen /hpf Urine Glucose Normal Normal mg/dL White Blood Count 11.7 H 4.4-10.8 10^3/uL Red Blood Count 3.06 L 4.0-5.20 10^6/uL Hemoglobin 10.3 L 12.2-16.2 g/dL Hematocrit 30.2 L 36.0-46.0 % Mean Corpuscular Volume 98.7 80.0-100.0 fL Mean Corpuscular Hemoglobin 33.6 H 28.0-32.0 pg Mean Corpuscular Hemoglobin Concent 34.1 32.0-36.0 g/dL Red Cell Distribution Width 13.0 11.8-14.3 % Platelet Count 274 140-450 10^3/uL Mean Platelet Volume 7.1 6.9-10.8 fL Neutrophils (%) (Auto) 63.3 37.0-80.0 % Lymphocytes (%) (Auto) 28.8 10.0-50.0 % Monocytes (%) (Auto) 7.1 0.0-12.0 % Eosinophils (%) (Auto) 0.4 0.0-7.0 % Basophils (%) (Auto) 0.4 0.0-2.0 % Neutrophils # (Auto) 7.4 1.6-8.6 10 ^3/uL Lymphocytes # (Auto) 3.4 0.4-5.4 10 ^3/uL Monocytes # (Auto) 0.8 0-1.3 10 ^3/uL Eosinophils # (Auto) 0.1 0-0.8 10 ^3/uL Basophils # (Auto) 0 0-0.2 10 ^3/uL Nucleated Red Blood Cells 0.1 % Sodium Level 110 *L 136-145 mmol/L Potassium Level 4.9 3.5-5.1 mmol/L Chloride Level 81 L 98-107 mmol/L Carbon Dioxide Level 22 20-31 mmol/L Anion Gap 7 5-15 Blood Urea Nitrogen 15 9-23 mg/dL Creatinine 0.79 0.550-1.02 mg/dL Glomerular Filtration Rate Calc 74 >90 mL/min BUN/Creatinine Ratio 19.0 10.0-20.0 Serum Glucose 162 H 74-106 mg/dL Calcium Level 9.3 8.7-10.4 mg/dL Assessment/Plan Problem List: (1) Gross hematuria (2) Hyponatremia (3) Altered mental status Plan 3 way ann, start CBI transfuse PRBC for hgb < 7 replete electrolytes. if urine does not clear will plan for cystoscopy Plan discussed with: MARIE Wallace NP Sep 16, 2024 18:11
[2024-09-16 19:35] VITALS: PULSE 73; RESP 14; O2SAT 96
[2024-09-16] MEDS: IOHEXOL 300 MG/ML 100ML BOTTLE IJ ONE (20:07)
--- NOTE | 2024-09-16 21:11 | DVH ---
Exam: CT CT AB PELVIS with contrast History: gross hematuria Comparison Study: None available at time of dictation. Technique: Multidetector spiral CT of the abdomen and pelvis was performed from lung bases to pubic s ymphysis. Initial imaging was done without IV contrast, followed by post contrast images of the abdo men and pelvis. Intravenous contrast was administered during this examination. portal venous/arteria l/multiphase imaging was obtained. Axial, coronal and sagittal multiplanar reformats were performed by the technologist on a separate workstation. Radiation Dose : CT Dose: CTDI volume is 7.44 mGy. Dose-length product is 784.81 mGy*cm Findings: Lung bases demonstrate bilateral ground-glass disease, reticular changes. Adrenal glands, spleen and pancreas unremarkable. No enhancing hepatic lesion. Cholecystectomy. The kidneys demonstrate no hydronephrosis. Stomach is partially distended. Small bowel loops are normal in caliber. Colonic diverticular disease. Moderate volume stool in the colon. No secondary signs for appendicitis . Abdominal aortic atherosclerotic disease. There is diffuse irregular thickening of the bladder wall with surrounding stranding. Bladder mucosa l hyperemia. Valdes catheter. Small amount of air in the bladder. No inguinal lymphadenopathy. Moderate thoracolumbar degenerative disc disease. Chronic T12 compression deformity with approximate ly 30% loss height. IMPRESSION: 1. Severe bladder wall thickening and surrounding stranding with mucosal hyperemia. Findings are con sistent with severe cystitis. 2. Bilateral pulmonary ground-glass disease and reticular changes which could be secondary to chronic lung disease/ interstitial disease, edema, infectious/inflammatory processes. 3. Cholecystectomy. 4. No evidence of renal mass. 5. Other findings as described. HS:Y
[2024-09-16 22:20] VITALS: BP 110/47; PULSE 78; RESP 18; TEMP 98.5; O2SAT 95
[2024-09-16] MEDS: CARBIDOPA W LEVODOPA 25/100mg TABLET PO SCH (22:54)
[2024-09-16] MEDS: cefTRIAXone 1GM/50ML D5W 50 ML IV ONE (22:55)
[2024-09-16] MEDS: ATORVASTATIN 20 MG TAB PO SCH (22:55)
[2024-09-16 23:01] VITALS: PULSE 78; RESP 18; O2SAT 95
[2024-09-17] VITALS (8 sets, daily range): BP systolic 87–132; BP diastolic 34–56; PULSE 63–118; RESP 17–19; TEMP 97.8–98.9; O2SAT 92–96
[2024-09-17 08:47] LABS: Basophils # (auto) 0.1 10 ^3/uL (0-0.2); Basophils % (auto) 0.5 % (0.0-2.0); Eosinophils # (auto) 0 10 ^3/uL (0-0.8); Eosinophils % (auto) 0.5 % (0.0-7.0); Hematocrit 27.8 % (36.0-46.0); Hemoglobin 9.2 g/dL (12.2-16.2); Lymphocytes # (auto) 2.1 10 ^3/uL (0.4-5.4); Lymphocytes % (auto) 19.9 % (10.0-50.0); Mean Corpuscular Hemoglobin 33.8 pg (28.0-32.0); Mean Corpuscular Hgb Conc. 33.2 g/dL (32.0-36.0); Mean Corpuscular Volume 101.9 fL (80.0-100.0); Monocytes # (auto) 0.8 10 ^3/uL (0-1.3); Monocytes % (auto) 7.7 % (0.0-12.0); Neutrophils # (auto) 7.4 10 ^3/uL (1.6-8.6); Neutrophils % (auto) 71.4 % (37.0-80.0); Nucleated Red Blood Cells % 0.1 %; Platelet Count (auto) 221 10^3/uL (140-450); Red Blood Cells 2.73 10^6/uL (4.0-5.20); Red Cell Distribution Width 13.7 % (11.8-14.3); White Blood Cell 10.4 10^3/uL (4.4-10.8)
[2024-09-17] MEDS: cefTRIAXone 1GM/50ML D5W 50 ML IV SCH (09:02)
[2024-09-17 09:19] LABS: Alkaline Phosphatase 48 U/L (46-116); Anion Gap 11 (5-15); Potassium 4.2 mmol/L (3.5-5.1)
[2024-09-17 09:20] LABS: Albumin 3.2 g/dL (3.2-4.8)
[2024-09-17 09:21] LABS: Aspartate Aminotransferase 14 U/L (13-40)
[2024-09-17 09:33] LABS: Alanine Aminotransferase < 9 U/L (7-40); Bilirubin, Total 0.3 mg/dL (0.2-1.0); Blood Urea Nitrogen 8 mg/dL (9-23); Calcium 8.4 mg/dL (8.7-10.4); Carbon Dioxide 15 mmol/L (20-31); Chloride 97 mmol/L (98-107); Glucose 119 mg/dL (74-106); Sodium 123 mmol/L (136-145); Total Protein 5.5 g/dL (5.7-8.2)
--- NOTE | 2024-09-17 14:53 | DVHPN2 ---
Reviewed: Care Plan, H&P, Labs, Medications, Previous Orders, Radiology Changes from previous H/P or p: No Changes Eyes: No Pain, No Vision change, No Conjunctivae inflammation, No Eyelid inflammation, No Other, No Redness ENT: No Ear pain, No Ear discharge, No Nose pain, No Nose discharge, No Nose congestion, No Mouth pain, No Mouth swelling, No Throat pain, No Throat swelling; Other (increased snoring ) Cardiovascular: No Chest Pain, No Palpitations, No Orthopnea, No Paroxysmal Noc. Dyspnea, No Edema, No Lt Headedness, No Other Respiratory: No Cough, No Dry, No Shortness of breath, No SOB with excertion, No Wheezing, No Hemoptysis, No Pleuritic Pain, No Sputum, No Other Gastrointestinal: No Nausea, No Vomiting, No Abdominal Pain, No Diarrhea, No Constipation, No Melena, No Hematochezia, No Other Genitourinary: No Dysuria, No Frequency, No Incontinence; Hematuria; No Retention, No Other Musculoskeletal: No other, No neck pain, No shoulder pain, No arm pain, No back pain, No hand pain, No leg pain, No foot pain Skin: No Rash, No Lesions, No Jaundice, No Bruising, No Other Objective Vitals Vital Signs Date Time Temp Pulse Resp B/P (MAP) Pulse Ox O2 Delivery O2 Flow Rate FiO2 09/17/24 13:00 97.8 83 19 113/41 (65) 92 97.8 09/16/24 23:01 Room Air* 0 21 Intake/Output Intake and Output 09/17/24 07:00 Intake Total 1350 ml Output Total 1700 ml Balance -350 ml Intake Oral 50 ml IV Total 1300 ml Output Urine Total 1700 ml Medications Current Medications Medications Dose Ordered Sig/Annmarie Route Start Time Stop Time Status Last Admin Dose Admin Diagnostic Test (Pha) 1 strip ACHS 09/16/24 17:00 09/17/24 11:51 1 STRIP Insulin Human Regular ACHS SC 09/16/24 17:00 09/17/24 12:00 3 UNITS Dextrose 50 ml UD PRN IV 09/16/24 14:00 Acetaminophen/ Hydrocodone Bitart 1 tab Q4HP PRN PO 09/16/24 14:00 Ondansetron HCl 4 mg Q4HP PRN IV 09/16/24 14:00 Docusate Sodium 100 mg BIDPRN PRN PO 09/16/24 14:00 Acetaminophen 650 mg Q6HP PRN PO 09/16/24 14:00 Atorvastatin Calcium 10 mg HS PO 09/16/24 22:00 09/16/24 22:55 10 MG Carbidopa/Levodopa 1 tab TID PO 09/16/24 22:00 09/17/24 06:10 1 TAB Nitroglycerin 0.4 mg Q5MINP PRN SL 09/16/24 16:00 Morphine Sulfate 2 mg Q30M PRN IV 09/16/24 16:00 Ceftriaxone Sodium 50 ml @ 100 mls/hr DAILY@09 IV 09/17/24 09:00 09/17/24 09:02 100 MLS/HR Laboratory Results Laboratory Tests 09/17/24 07:55 Chemistry Test 09/17/24 07:55 Albumin 3.2 g/dL (3.2-4.8) Calcium Level 8.4 mg/dL (8.7-10.4) L Total Protein 5.5 g/dL (5.7-8.2) L LFT Test 09/17/24 07:55 Alanine Aminotransferase (ALT) < 9 U/L (7-40) Alkaline Phosphatase 48 U/L (46-116) Aspartate Amino Transferase (AST) 14 U/L (13-40) Total Bilirubin 0.3 mg/dL (0.2-1.0) Urinalysis Test 09/16/24 16:15 Urine Color Red (Yellow) H Urine Clarity Ex.turbid (Clear) Urine pH 7.5 (5.0-9.0) Urine Specific [place] 1.011 (1.001-1.035) Urine Protein 3+ (Negative) H Urine Ketones Negative (Negative) Urine Blood 3+ /uL (Negative) H Urine Nitrite Negative (Negative) Urine Bilirubin Negative (Negative) Urine Urobilinogen Normal mg/dL (Negative) Urine Leukocyte Esterase 3+ /uL (Negative) Urine RBC 4468 /hpf (0 - 4) Urine WBC Clumps Present /hpf (None Seen) Urine Microscopic WBC 1650 /HPF (0-5) H Urine Squamous Epithelial Cells None seen /hpf (<5) Urine Bacteria Mod /hpf (None Seen) H Urine Glucose Normal mg/dL (Normal) Labs and/or images reviewed: Labs reviewed by me, Image(s) reviewed by me Assessment/Plan Assessment/Plan Gross hematuria: Urology consult appreciated, 3 way bladder irrigation Urinary tract infection: Blood cultures urine cultures Rocephin Severe hyponatremia sodium 110 improved to 123 with IV fluids Community-acquired pneumonia: Rocephin Hypercholesterolemia Diabetes History of AFib on Eliquis, PCP Dr Sparrow stopped Eliquis on 09/10/2024 placed on Plavix Hypertension Parkinson's disease Acute dehydration: IV fluids Patient is hospice revoked Time spent 65 minutes Patient is full code Advanced care planning time 20 minutes Daughter Tory [phone] at bedside Patient was on hospice for last three months Plan discussed with: Patient My Orders Orders - ENEDINA VASQUEZ MD Procedure Category Date Status Time Blood Culture AXEL 09/17/24 Verified 14:40 Date of Service: Sep 17, 2024 Billing Provider: ENEDINA VASQUEZ MD Common Visit Codes: [id number] CARE 30-74 MIN ENEDINA VASQUEZ MD Sep 17, 2024 14:53
[2024-09-17] MEDS ORDERED: TRAZ-227 PO (20:20)
[2024-09-17] MEDS ORDERED: PIO30T GT (20:20)
[2024-09-17] MEDS ORDERED: GLIP2.5T9 PO (20:20)
[2024-09-17] MEDS ORDERED: CLOP75TA70 PO (20:20)
[2024-09-17] MEDS ORDERED: AMIO200T33 PO (20:20)
[2024-09-17] MEDS ORDERED: LOSA-533 PO (20:20)
[2024-09-17] MEDS ORDERED: CARB25TA79 PO (20:20)
[2024-09-18] VITALS (8 sets, daily range): BP systolic 94–125; BP diastolic 40–57; PULSE 78–94; RESP 17–20; TEMP 97.2–98.9; O2SAT 93–97
[2024-09-18] MEDS: ACETAMINOPHEN 325 MG TAB PO PRN (03:52)
[2024-09-18] MEDS: SODIUM CHLORIDE 0.9% 1,000 ML IV SCH (11:30)
--- NOTE | 2024-09-18 11:46 | DVHPN2 ---
Reviewed: Care Plan, H&P, Labs, Medications, Previous Orders, Radiology Changes from previous H/P or p: No Changes Eyes: No Pain, No Vision change, No Conjunctivae inflammation, No Eyelid inflammation, No Other, No Redness ENT: No Ear pain, No Ear discharge, No Nose pain, No Nose discharge, No Nose congestion, No Mouth pain, No Mouth swelling, No Throat pain, No Throat swelling; Other (increased snoring ) Cardiovascular: No Chest Pain, No Palpitations, No Orthopnea, No Paroxysmal Noc. Dyspnea, No Edema, No Lt Headedness, No Other Respiratory: No Cough, No Dry, No Shortness of breath, No SOB with excertion, No Wheezing, No Hemoptysis, No Pleuritic Pain, No Sputum, No Other Gastrointestinal: No Nausea, No Vomiting, No Abdominal Pain, No Diarrhea, No Constipation, No Melena, No Hematochezia, No Other Genitourinary: No Dysuria, No Frequency, No Incontinence; Hematuria; No Retention, No Other Musculoskeletal: No other, No neck pain, No shoulder pain, No arm pain, No back pain, No hand pain, No leg pain, No foot pain Skin: No Rash, No Lesions, No Jaundice, No Bruising, No Other Objective Vitals Vital Signs Date Time Temp Pulse Resp B/P (MAP) Pulse Ox O2 Delivery O2 Flow Rate FiO2 09/18/24 08:35 98.9 80 20 94/52 (66) 93 98.9 09/17/24 20:00 Room Air* 0 21 Intake/Output Intake and Output 09/18/24 07:00 Intake Total 436 ml Output Total 01922 ml Balance -72461 ml Intake Oral 386 ml IV Total 50 ml Output Urine Total 2746 ml Other 14164 ml Medications Current Medications Medications Dose Ordered Sig/Annmarie Route Start Time Stop Time Status Last Admin Dose Admin Diagnostic Test (Pha) 1 strip ACHS 09/16/24 17:00 09/18/24 11:32 1 STRIP Insulin Human Regular ACHS SC 09/16/24 17:00 09/18/24 11:34 3 UNITS Dextrose 50 ml UD PRN IV 09/16/24 14:00 Ondansetron HCl 4 mg Q4HP PRN IV 09/16/24 14:00 Docusate Sodium 100 mg BIDPRN PRN PO 09/16/24 14:00 Acetaminophen 650 mg Q6HP PRN PO 09/16/24 14:00 09/18/24 03:52 650 MG Atorvastatin Calcium 10 mg HS PO 09/16/24 22:00 09/17/24 22:18 10 MG Carbidopa/Levodopa 1 tab TID PO 09/16/24 22:00 09/18/24 05:45 1 TAB Nitroglycerin 0.4 mg Q5MINP PRN SL 09/16/24 16:00 Morphine Sulfate 2 mg Q30M PRN IV 09/16/24 16:00 Ceftriaxone Sodium 50 ml @ 100 mls/hr DAILY@09 IV 09/17/24 09:00 09/18/24 08:54 100 MLS/HR Sodium Chloride 1,000 ml @ 125 mls/hr Q8H IV 09/18/24 11:30 UNV Laboratory Results Laboratory Tests 09/17/24 07:55 Urinalysis Test 09/16/24 16:15 Urine Color Red (Yellow) H Urine Clarity Ex.turbid (Clear) Urine pH 7.5 (5.0-9.0) Urine Specific [place] 1.011 (1.001-1.035) Urine Protein 3+ (Negative) H Urine Ketones Negative (Negative) Urine Blood 3+ /uL (Negative) H Urine Nitrite Negative (Negative) Urine Bilirubin Negative (Negative) Urine Urobilinogen Normal mg/dL (Negative) Urine Leukocyte Esterase 3+ /uL (Negative) Urine RBC 4468 /hpf (0 - 4) Urine WBC Clumps Present /hpf (None Seen) Urine Microscopic WBC 1650 /HPF (0-5) H Urine Squamous Epithelial Cells None seen /hpf (<5) Urine Bacteria Mod /hpf (None Seen) H Urine Glucose Normal mg/dL (Normal) Labs and/or images reviewed: Labs reviewed by me, Image(s) reviewed by me Assessment/Plan Assessment/Plan Gross hematuria: Urology consult appreciated, 3 way bladder irrigation Urinary tract infection: Blood cultures pending urine cultures pending, continue Rocephin Severe hyponatremia sodium 110 improved to 123 with IV fluids, NS 125 mL per hr Community-acquired pneumonia: Rocephin Hypercholesterolemia Diabetes History of AFib on Eliquis, PCP Dr Sparrow stopped Eliquis on 09/10/2024 placed on Plavix Hypertension Parkinson's disease Acute dehydration: IV fluids Patient is hospice revoked Time spent 55 minutes Patient is full code Advanced care planning time 20 minutes Daughter Tory [phone] at bedside Patient was on hospice for last three months Vonnie test, rapid flu test, CT head without contrast ordered Discontinued Arsalan as the patient is altered and confused Plan discussed with: Patient My Orders Orders - ENEDINA VASQUEZ MD Procedure Category Date Status Time Blood Culture AXEL 09/17/24 In Process 14:40 Sodium Chloride 0.9% PHA 09/18/24 Logged 11:[address] 09/18/24 Logged 11:42 Rapid Influenza A&B LAB 09/18/24 Transmitted 11:43 Covid19 Antigen [facility] LAB 09/18/24 Transmitted D-Dimer LAB 09/18/24 Transmitted 11:43 Date of Service: Sep 18, 2024 Billing Provider: ENEDINA VASQUEZ MD Common Visit Codes: [id number] INP/OBS CARE(HIGH) ENEDINA VASQUEZ MD Sep 18, 2024 11:46
--- NOTE | 2024-09-18 12:55 | DVH ---
EXAM: CT HEAD WITHOUT CONTRAST INDICATION: aloc TECHNIQUE: CT of the head without intravenous contrast. Radiation Dose : 1. Head: CT Dose: CTDI volume is 48.86 mGy. Dose-length product is 783.5 mGy*cm The dose indicators for CT are the volume Computed Tomography (CT) Dose Index (CTDIvol) and the Dose Length Product (DLP), and are measured in units of mGy and mGy-cm, respectively. These indicators are not patient dose, but values generated from the CT scanner acquisition factors. The report includes radiation exposure data for exposures received during this examination. COMPARISON: HEAD WITHOUT CONTRAST on DOS: 05/27/22 FINDINGS: There is no evidence of acute intracranial hemorrhage, extra-axial collection, mass effect, midline s hift, herniation or hydrocephalus. The ventricles, sulci and cisterns are age appropriate. The acuña-white differentiation is intact. Patchy periventricular and subcortical white matter hypoattenuation is nonspecific but may be related to small vessel ischemic disease. The visualized paranasal sinuses and mastoid air cells are clear. The surrounding soft tissues and osseous structures are unremarkable. IMPRESSION: No acute intracranial abnormality. Radiation optimization: All CT scans at this facility use at least one of these dose optimization jazlyn hniques: automated exposure control mA and/or kV adjustment per patient size (includes targeted exam s where dose is matched to clinical indication) or iterative reconstruction.
[2024-09-18 13:45] LABS: Basophils # (auto) 0 10 ^3/uL (0-0.2); Basophils % (auto) 0.5 % (0.0-2.0); Eosinophils # (auto) 0.1 10 ^3/uL (0-0.8); Hemoglobin 8.7 g/dL (12.2-16.2); Mean Corpuscular Hgb Conc. 35.1 g/dL (32.0-36.0); Monocytes # (auto) 0.5 10 ^3/uL (0-1.3); Neutrophils # (auto) 5.9 10 ^3/uL (1.6-8.6); Nucleated Red Blood Cells % 0.1 %; Red Blood Cells 2.54 10^6/uL (4.0-5.20)
[2024-09-18 13:47] LABS: Eosinophils % (auto) 1.3 % (0.0-7.0); Hematocrit 24.7 % (36.0-46.0); Lymphocytes # (auto) 2.3 10 ^3/uL (0.4-5.4); Lymphocytes % (auto) 26.2 % (10.0-50.0); Mean Corpuscular Hemoglobin 34.1 pg (28.0-32.0); Mean Corpuscular Volume 97.3 fL (80.0-100.0); Monocytes % (auto) 6.1 % (0.0-12.0); Neutrophils % (auto) 65.9 % (37.0-80.0); Platelet Count (auto) 261 10^3/uL (140-450); Red Cell Distribution Width 13.3 % (11.8-14.3); White Blood Cell 8.9 10^3/uL (4.4-10.8)
[2024-09-18 14:01] LABS: Potassium 3.7 mmol/L (3.5-5.1)
[2024-09-18 14:02] LABS: Anion Gap 8 (5-15)
[2024-09-18 14:03] LABS: Calcium 8.7 mg/dL (8.7-10.4)
[2024-09-18 14:11] LABS: Blood Urea Nitrogen 7 mg/dL (9-23); Carbon Dioxide 20 mmol/L (20-31); Chloride 98 mmol/L (98-107); Glucose 130 mg/dL (74-106); Sodium 126 mmol/L (136-145)
[2024-09-18 18:31] LABS: COVID19 ANTIGEN SOFIA FIA NEGATIVE (NEGATIVE); Rapid Influenza A Negative (Negative); Rapid Influenza B Negative (Negative)
[2024-09-19] VITALS (9 sets, daily range): BP systolic 102–137; BP diastolic 42–66; PULSE 82–99; RESP 16–19; TEMP 98–99.1; O2SAT 92–96
--- NOTE | 2024-09-19 10:47 | DVHPN2 ---
Reviewed: Care Plan, H&P, Labs, Medications, Previous Orders, Radiology Changes from previous H/P or p: No Changes Eyes: No Pain, No Vision change, No Conjunctivae inflammation, No Eyelid inflammation, No Other, No Redness ENT: No Ear pain, No Ear discharge, No Nose pain, No Nose discharge, No Nose congestion, No Mouth pain, No Mouth swelling, No Throat pain, No Throat swelling; Other (increased snoring ) Cardiovascular: No Chest Pain, No Palpitations, No Orthopnea, No Paroxysmal Noc. Dyspnea, No Edema, No Lt Headedness, No Other Respiratory: No Cough, No Dry, No Shortness of breath, No SOB with excertion, No Wheezing, No Hemoptysis, No Pleuritic Pain, No Sputum, No Other Gastrointestinal: No Nausea, No Vomiting, No Abdominal Pain, No Diarrhea, No Constipation, No Melena, No Hematochezia, No Other Genitourinary: No Dysuria, No Frequency, No Incontinence; Hematuria; No Retention, No Other Musculoskeletal: No other, No neck pain, No shoulder pain, No arm pain, No back pain, No hand pain, No leg pain, No foot pain Skin: No Rash, No Lesions, No Jaundice, No Bruising, No Other Objective Vitals Vital Signs Date Time Temp Pulse Resp B/P (MAP) Pulse Ox O2 Delivery O2 Flow Rate FiO2 09/19/24 08:44 99.0 94 16 137/53 (81) 96 99.0 09/19/24 08:15 Room Air* 0 21 Intake/Output Intake and Output 09/19/24 07:00 Intake Total 695 ml Output Total 45490 ml Balance -29286 ml Intake Oral 420 ml IV Total 275 ml Output Urine Total 78569 ml Medications Current Medications Medications Dose Ordered Sig/Annmarie Route Start Time Stop Time Status Last Admin Dose Admin Diagnostic Test (Pha) 1 strip ACHS 09/16/24 17:00 09/19/24 06:28 1 STRIP Insulin Human Regular ACHS SC 09/16/24 17:00 09/18/24 21:48 2 UNITS Dextrose 50 ml UD PRN IV 09/16/24 14:00 Ondansetron HCl 4 mg Q4HP PRN IV 09/16/24 14:00 Docusate Sodium 100 mg BIDPRN PRN PO 09/16/24 14:00 Acetaminophen 650 mg Q6HP PRN PO 09/16/24 14:00 09/18/24 03:52 650 MG Atorvastatin Calcium 10 mg HS PO 09/16/24 22:00 09/18/24 21:32 10 MG Carbidopa/Levodopa 1 tab TID PO 09/16/24 22:00 09/19/24 06:27 1 TAB Nitroglycerin 0.4 mg Q5MINP PRN SL 09/16/24 16:00 Morphine Sulfate 2 mg Q30M PRN IV 09/16/24 16:00 Ceftriaxone Sodium 50 ml @ 100 mls/hr DAILY@09 IV 09/17/24 09:00 09/19/24 09:09 100 MLS/HR Sodium Chloride 1,000 ml @ 125 mls/hr Q8H IV 09/18/24 11:30 09/19/24 06:27 125 MLS/HR Laboratory Results Laboratory Tests 09/18/24 13:09 Chemistry Test 09/18/24 13:09 Calcium Level 8.7 mg/dL (8.7-10.4) Coagulation Test 09/18/24 13:09 D-Dimer, Quantitative 0.35 mg/L FEU (0.0-0.49) Urinalysis Test 09/16/24 16:15 Urine Color Red (Yellow) H Urine Clarity Ex.turbid (Clear) Urine pH 7.5 (5.0-9.0) Urine Specific [place] 1.011 (1.001-1.035) Urine Protein 3+ (Negative) H Urine Ketones Negative (Negative) Urine Blood 3+ /uL (Negative) H Urine Nitrite Negative (Negative) Urine Bilirubin Negative (Negative) Urine Urobilinogen Normal mg/dL (Negative) Urine Leukocyte Esterase 3+ /uL (Negative) Urine RBC 4468 /hpf (0 - 4) Urine WBC Clumps Present /hpf (None Seen) Urine Microscopic WBC 1650 /HPF (0-5) H Urine Squamous Epithelial Cells None seen /hpf (<5) Urine Bacteria Mod /hpf (None Seen) H Urine Glucose Normal mg/dL (Normal) Microbiology Microbiology Date/Time Source Procedure Growth Status 09/17/24 16:22 Blood Blood Culture - Preliminary NO GROWTH AFTER 24 HOURS OF INCUBATION. Resulted 09/16/24 16:15 Voided Urine Urine Culture - Preliminary Resulted Labs and/or images reviewed: Labs reviewed by me, Image(s) reviewed by me Assessment/Plan Assessment/Plan Gross hematuria: Urology consult appreciated, 3 way bladder irrigation Urinary tract infection: Blood cultures negative urine cultures growing Gram- negative rods, continue Rocephin Severe hyponatremia sodium 110 improved to 126 with IV fluids, NS 125 mL per hr Community-acquired pneumonia: Rocephin Hypercholesterolemia Uncontrolled Diabetes: Insulin sliding scale History of AFib on Eliquis, PCP Dr Sparrow stopped Eliquis on 09/10/2024 placed on Plavix Hypertension Parkinson's disease Acute dehydration: IV fluids COVID ruled out Flu test negative D-dimer normal CT head negative Patient is hospice revoked Time spent 55 minutes Patient is full code Advanced care planning time 20 minutes Daughter Tory [phone] at bedside Son Yogi: [phone], [id number] Jackie [phone] who live in [place] are at bedside Patient was on hospice for last three months Plan discussed with: Patient My Orders Orders - ENEDINA VASQUEZ MD Procedure Category Date Status Time Sodium Chloride 0.9% PHA 09/18/24 In Process 11:[address] 09/18/24 Resulted 11:42 * Swallow Request ST 09/18/24 Transmitted 11:44 Regular Diet DIET 09/18/24 Transmitted Dinner Date of Service: Sep 19, 2024 Billing Provider: ENEDINA VASQUEZ MD Common Visit Codes: [id number] CARE 30-74 MIN ENEDINA VASQUEZ MD Sep 19, 2024 10:47
[2024-09-19 12:04] LABS: Basophils # (auto) 0.1 10 ^3/uL (0-0.2); Basophils % (auto) 0.6 % (0.0-2.0); Eosinophils # (auto) 0 10 ^3/uL (0-0.8); Eosinophils % (auto) 0.6 % (0.0-7.0); Mean Corpuscular Volume 98.4 fL (80.0-100.0)
[2024-09-19 12:05] LABS: Hematocrit 23.4 % (36.0-46.0); Lymphocytes # (auto) 1.7 10 ^3/uL (0.4-5.4); Lymphocytes % (auto) 19.1 % (10.0-50.0); Mean Corpuscular Hemoglobin 33.7 pg (28.0-32.0); Mean Corpuscular Hgb Conc. 34.3 g/dL (32.0-36.0); Monocytes # (auto) 0.5 10 ^3/uL (0-1.3); Monocytes % (auto) 5.6 % (0.0-12.0); Neutrophils # (auto) 6.6 10 ^3/uL (1.6-8.6); Neutrophils % (auto) 74.1 % (37.0-80.0); Nucleated Red Blood Cells % 0.1 %; Platelet Count (auto) 265 10^3/uL (140-450); Red Blood Cells 2.38 10^6/uL (4.0-5.20); Red Cell Distribution Width 13.7 % (11.8-14.3); White Blood Cell 8.9 10^3/uL (4.4-10.8)
[2024-09-19 12:26] LABS: Albumin 3.4 g/dL (3.2-4.8); Alkaline Phosphatase 49 U/L (46-116); Anion Gap 10 (5-15); BUN/Creatinine Ratio 9.1 (10.0-20.0); Chloride 101 mmol/L (98-107); Potassium 3.9 mmol/L (3.5-5.1)
[2024-09-19 12:30] LABS: Carbon Dioxide 18 mmol/L (20-31); Glucose 211 mg/dL (74-106); Sodium 129 mmol/L (136-145)
[2024-09-19 12:31] LABS: Alanine Aminotransferase < 9 U/L (7-40); Aspartate Aminotransferase 12 U/L (13-40); Bilirubin, Total 0.2 mg/dL (0.2-1.0); Blood Urea Nitrogen 6 mg/dL (9-23); Calcium 8.5 mg/dL (8.7-10.4); Total Protein 5.5 g/dL (5.7-8.2)
[2024-09-20] VITALS (8 sets, daily range): BP systolic 108–160; BP diastolic 51–86; PULSE 89–96; RESP 16–18; TEMP 97.4–99.9; O2SAT 93–96
--- NOTE | 2024-09-20 09:11 | DVHPN2 ---
Progress Note - Dictate Date Seen: Sep 20, 2024 Medical Necessity Reason Pt with a Central, PICC or Fol: Yes The following are medically ne: Ann Catheter Medical Necessity Reason CBI vital signs Vital Sign Date Time Temp Pulse Resp B/P (MAP) Pulse Ox O2 Delivery O2 Flow Rate FiO2 09/20/24 05:00 98.0 94 16 140/86 (104) 93 98.0 09/19/24 20:00 Room Air* 0 21 Total Intake and Output 09/19/24 09/19/24 09/20/24 15:00 23:00 07:00 Intake Total 675 ml 320 ml Output Total 72487 ml 1100 ml Balance 675 ml -26470 ml -1100 ml medications Current Medications Medications Dose Ordered Sig/Annmarie Route Start Time Stop Time Status Last Admin Dose Admin Diagnostic Test (Pha) 1 strip ACHS 09/16/24 17:00 09/20/24 06:03 1 STRIP Insulin Human Regular ACHS SC 09/16/24 17:00 09/19/24 17:54 3 UNITS Dextrose 50 ml UD PRN IV 09/16/24 14:00 Ondansetron HCl 4 mg Q4HP PRN IV 09/16/24 14:00 Docusate Sodium 100 mg BIDPRN PRN PO 09/16/24 14:00 Acetaminophen 650 mg Q6HP PRN PO 09/16/24 14:00 09/18/24 03:52 650 MG Atorvastatin Calcium 10 mg HS PO 09/16/24 22:00 09/19/24 21:07 10 MG Carbidopa/Levodopa 1 tab TID PO 09/16/24 22:00 09/20/24 06:52 1 TAB Nitroglycerin 0.4 mg Q5MINP PRN SL 09/16/24 16:00 Morphine Sulfate 2 mg Q30M PRN IV 09/16/24 16:00 Ceftriaxone Sodium 50 ml @ 100 mls/hr DAILY@09 IV 09/17/24 09:00 09/19/24 09:09 100 MLS/HR Sodium Chloride 1,000 ml @ 125 mls/hr Q8H IV 09/18/24 11:30 09/20/24 03:30 125 MLS/HR objective NAD, family at bedside urine is clear. CBI OFF laboratory and microbiology Laboratory Tests 09/19/24 11:46 Test 09/19/24 11:46 Range/Units Serum Glucose 211 H 74-106 mg/dL Assessment/Plan CBI off d/c ann outpt follow up for cystoscopy Problems(with codes): (1) Gross hematuria (2) Urinary tract infection (3) Parkinson disease Prognosis fair Plan discussed with: Patient, Daughter, Son, Other Total Time (mins): MARIE BRADFORD NP Sep 20, 2024 09:11
--- NOTE | 2024-09-20 10:26 | DVHDS2 ---
Discharge Summary Date of Admission Sep 16, 2024 at 15:55 Date of Discharge: Sep 20, 2024 Admitting Diagnosis Altered mental status and blood in the urine Wounds: None Labs/Diagnostic Data: Laboratory Results Test 09/20/24 05:50 09/19/24 11:46 09/18/24 17:13 09/18/24 13:09 POC Glucose 152 mg/dl (70-106) White Blood Count 8.9 10^3/uL (4.4-10.8) Red Blood Count 2.38 10^6/uL (4.0-5.20) Hemoglobin 8.0 g/dL (12.2-16.2) Hematocrit 23.4 % (36.0-46.0) Mean Corpuscular Volume 98.4 fL (80.0-100.0) Mean Corpuscular Hemoglobin 33.7 pg (28.0-32.0) Mean Corpuscular Hemoglobin Concent 34.3 g/dL (32.0-36.0) Red Cell Distribution Width 13.7 % (11.8-14.3) Platelet Count 265 10^3/uL (140-450) Mean Platelet Volume 6.4 fL (6.9-10.8) Neutrophils (%) (Auto) 74.1 % (37.0-80.0) Lymphocytes (%) (Auto) 19.1 % (10.0-50.0) Monocytes (%) (Auto) 5.6 % (0.0-12.0) Eosinophils (%) (Auto) 0.6 % (0.0-7.0) Basophils (%) (Auto) 0.6 % (0.0-2.0) Neutrophils # (Auto) 6.6 10 ^3/uL (1.6-8.6) Lymphocytes # (Auto) 1.7 10 ^3/uL (0.4-5.4) Monocytes # (Auto) 0.5 10 ^3/uL (0-1.3) Eosinophils # (Auto) 0 10 ^3/uL (0-0.8) Basophils # (Auto) 0.1 10 ^3/uL (0-0.2) Nucleated Red Blood Cells 0.1 % Sodium Level 129 mmol/L (136-145) Potassium Level 3.9 mmol/L (3.5-5.1) Chloride Level 101 mmol/L (98-107) Carbon Dioxide Level 18 mmol/L (20-31) Anion Gap 10 (5-15) Blood Urea Nitrogen 6 mg/dL (9-23) Creatinine 0.66 mg/dL (0.550-1.02) Glomerular Filtration Rate Calc 86 mL/min (>90) BUN/Creatinine Ratio 9.1 (10.0-20.0) Serum Glucose 211 mg/dL (74-106) Calcium Level 8.5 mg/dL (8.7-10.4) Total Bilirubin 0.2 mg/dL (0.2-1.0) Aspartate Amino Transferase (AST) 12 U/L (13-40) Alanine Aminotransferase (ALT) < 9 U/L (7-40) Alkaline Phosphatase 49 U/L (46-116) Total Protein 5.5 g/dL (5.7-8.2) Albumin 3.4 g/dL (3.2-4.8) Influenza Type A Antigen Negative (Negative) Influenza Type B Antigen Negative (Negative) SARS-CoV-2 Antigen (Rapid) Negative (NEGATIVE) D-Dimer, Quantitative 0.35 mg/L FEU (0.0-0.49) Test 09/16/24 16:15 Urine Color Red (Yellow) Urine Clarity Ex.turbid (Clear) Urine pH 7.5 (5.0-9.0) Urine Specific [place] 1.011 (1.001-1.035) Urine Protein 3+ (Negative) Urine Ketones Negative (Negative) Urine Blood 3+ /uL (Negative) Urine Nitrite Negative (Negative) Urine Bilirubin Negative (Negative) Urine Urobilinogen Normal mg/dL (Negative) Urine Leukocyte Esterase 3+ /uL (Negative) Urine RBC 4468 /hpf (0 - 4) Urine WBC Clumps Present /hpf (None Seen) Urine Microscopic WBC 1650 /HPF (0-5) Urine Squamous Epithelial Cells None seen /hpf (<5) Urine Bacteria Mod /hpf (None Seen) Urine Glucose Normal mg/dL (Normal) Other Laboratory Tests 09/19/24 11:46 Brief Hx & Hospital Course: 83-year-old female on hospice hospice revoked and brought by family to the ER for altered mental status and blood in the urine patient had gross hematuria CT abdomen pelvis without contrast was negative seen by Urology patient had three- way bladder irrigation and urine has cleared. The patient has UTI treated with Rocephin urine cultures came back positive for E coli patient has midline she will receive Rocephin for two weeks for complicated UTI. Blood cultures negative history of AFib on Eliquis PCP took her off of Eliquis and placed her on Plavix. COVID ruled out flu test negative D-dimer normal CT head negative patient also has a history of Parkinson's disease and hypertension and diabetes. The patient's son code yaya and [id number] Jackie at bedside requesting to be discharged home on home health for IV antibiotics General Condition Fair but poor at the time of discharge Consults/Reason for consult Urology Operations or Procedures CT abdomen pelvis without contrast CT head Condition at Discharge: Fair Final Diagnosis/Problems List Gross hematuria: Urology consult appreciated, 3 way bladder irrigation Urinary tract infection: Blood cultures negative urine cultures growing Gram-negative rods, continue Rocephin Severe hyponatremia sodium 110 improved to 126 with IV fluids, NS 125 mL per hr Community-acquired pneumonia: Rocephin Hypercholesterolemia Uncontrolled Diabetes: Insulin sliding scale History of AFib on Eliquis, PCP Dr Sparrow stopped Eliquis on 09/10/2024 placed on Plavix Hypertension Parkinson's disease Acute dehydration: IV fluids COVID ruled out Flu test negative D-dimer normal CT head negative Discharge Disposition: Home with Health Services Discharge Instruct/Medications Diet: Cardiac 2g Na,low cholest Activity: Light activity Follow Up/Referral: Resume all your Previous home medications Follow up with the Urology Dr. Garcia in 2 weeks Medications: Rocephin 1 g IV daily for two weeks by home health 35 (Time Taken For discharge summary 35 minutes) Discharge Statement: "Patient was advised to return to the ER or call 911 if any headaches, dizziness, shortness of breath, chest pain, abdominal pain, bleeding, fevers, or worsening of medical condition. Patient was counseled about treatment plan, medications, possible side effects, patientverbalized understanding. All questions were answered to the best of my ability. This discharge took greater then 30 minutes in planning, reviewing documentation, counseling the patient, and discussing with other team members." ASSESSMENT ASSESSMENT Hospital Course Uneventful Assessment Gross hematuria: Urology consult appreciated, 3 way bladder irrigation Urinary tract infection: Blood cultures negative urine cultures growing Gram- negative rods, continue Rocephin Severe hyponatremia sodium 110 improved to 126 with IV fluids, NS 125 mL per hr Community-acquired pneumonia: Rocephin Hypercholesterolemia Uncontrolled Diabetes: Insulin sliding scale History of AFib on Eliquis, PCP Dr Sparrow stopped Eliquis on 09/10/2024 placed on Plavix Hypertension Parkinson's disease Acute dehydration: IV fluids COVID ruled out Flu test negative D-dimer normal CT head negative Date of Service: Sep 20, 2024 Billing Provider: ENEDINA VASQUEZ MD Common Visit Codes: 91306-ENW/OBS DISCH DAY >30min ENEDINA VASQUEZ MD Sep 20, 2024 10:26
[2024-09-21 01:00] VITALS: BP 109/46; PULSE 90; RESP 18; TEMP 98.1; O2SAT 93
[2024-09-21 05:00] VITALS: BP 133/59; PULSE 100; RESP 18; TEMP 97.8; O2SAT 94
[2024-09-21 08:00] VITALS: PULSE 137; PULSE 96; RESP 18; O2SAT 96
[2024-09-21 09:00] VITALS: BP 97/54; PULSE 145; RESP 18; TEMP 98.3; O2SAT 94
[2024-09-21 13:00] VITALS: BP 136/58; PULSE 91; RESP 18; TEMP 97.8; O2SAT 90
[2024-09-21 17:00] VITALS: BP 137/64; PULSE 86; RESP 18; TEMP 97.8; O2SAT 92
== END 2024-09-21 19:15 | DRG 640 ==
LOC: ER 09:13 → EDBD 09:13 → TELE 15:55 → TELE-WESTW 22:10
PROVIDERS: ADMIT Nurse Practitioner Family; ATTEND Family Medicine
PROC: 05HF33Z Insertion of Infusion Device into Left Cephalic Vein, Percutaneous Approach (ICD-10-PCS; principal; 2024-09-19)
PROC: B54NZZA Ultrasonography of Left Upper Extremity Veins, Guidance (ICD-10-PCS; 2024-09-19)
DX: E87.1 Hypo-osmolality and hyponatremia (principal); G93.41 Metabolic encephalopathy; J15.69 Pneumonia due to other Gram-negative bacteria; J15.9 Unspecified bacterial pneumonia; N17.0 Acute kidney failure with tubular necrosis; N30.01 Acute cystitis with hematuria; N18.9 Chronic kidney disease, unspecified; E86.0 Dehydration; Z20.822 Contact with and (suspected) exposure to COVID-19; E11.22 Type 2 diabetes mellitus with diabetic chronic kidney disease; E78.00 Pure hypercholesterolemia, unspecified; F02.80 Dementia in other diseases classified elsewhere, unspecified severity, without behavioral disturbance, psychotic disturbance, mood disturbance, and anxiety; G20.A1 Parkinson's disease without dyskinesia, without mention of fluctuations; I48.91 Unspecified atrial fibrillation; B96.20 Unspecified Escherichia coli [E. coli] as the cause of diseases classified elsewhere; I12.9 Hypertensive chronic kidney disease with stage 1 through stage 4 chronic kidney disease, or unspecified chronic kidney disease; Z79.01 Long term (current) use of anticoagulants; Z79.84 Long term (current) use of oral hypoglycemic drugs; Z79.899 Other long term (current) drug therapy
CPT/HCPCS: 36415; 70450; 71045; 74178; 80048; 80053; 81001; 82962; 84295; 85025; 85379; 87040; 87086; 87088; 87186; 87426; 87804; 92610; 96360; 96372; 97110; 97116; 99291; 99292; G0378; J1815